=== PATIENT | female | born 1995 | race African-American/Black ===

== ENCOUNTER 2016-10-09 00:17 | Inpatient (IN) | payer SELFPAY ==
[~2016-10-09] VITALS: Ht 160 cm; Wt 112.9 kg
[2016-10-09 00:44] LABS: BILIRUBIN,URINE NEGATIVE (NEG); GLUCOSE,URINE NEGATIVE (NEG); NITRITE,URINE NEGATIVE (NEG); PH,URINE 6.5; PROTEIN,URINE NEGATIVE (NEG-TRACE)
[2016-10-09 01:06] LABS: BACTERIA,URINE FEW /HPF (0-FEW); SQUAMOUS EPITHELIAL CELL,UR MOD /LPF
[2016-10-09] MEDS: IV RINGERS,LACTATED 1000ML 1,000 ML IV SCH ×2 (01:35→17:19)
--- NOTE | 2016-10-09 14:04 | RAD ---
Indication hypertension. Estimated weight. A limited obstetrical ultrasound examination was performed as well as a biophysical profile score. Note is made of a previous ultrasound examination 13 days earlier. A single intrauterine is identified. A heart rate was not obtained. Biparietal diameter of 9.2 cm, head circumference of 33.3 cm, abdominal circumference of 35 cm and femoral length of 7.7 cm are compatible with a gestational age of approximately 38 weeks 4 days. By sonographic analysis the expected date of confinement is 10/19/2016 which is in general agreement with previous exam. Estimated weight on today's examination is 3600 g. A survey was not performed. Current presentation is cephalic. The placenta is predominantly anterior. A biophysical profile score was also performed. Normal breathing was seen. There was normal movement and tone. The amount of amniotic fluid appeared normal. The calculated TOMÁS is 12. IMPRESSION: Single fetus of approximately 38 weeks 4 days gestation. Estimated weight 3600 g. Biophysical profile score 8 out of 8
[2016-10-09] MEDS ORDERED: DINOPROSTONE 10 MG SUPP.VAG VG ONE (17:00)
[2016-10-09 17:35] LABS: HEMATOCRIT 32.9 % (36.0-47.0); RED BLOOD COUNT 4.2 x10^6/uL (3.50-5.40); WHITE BLOOD COUNT 9.4 x10^3/uL (4.0-11.0)
[2016-10-09 18:31] VITALS: BP 145/77
[2016-10-09] MEDS ORDERED: AMPICILLIN 2 GM in IV NORMAL SALINE 100ML 100 ML IV ONE (18:45)
[2016-10-10] MEDS: ZOLPIDEM 5 MG TABLET. PO PRN ×2 (00:27→22:25)
[2016-10-10] MEDS: ACETAMINOPHEN 325 MG TABLET. PO PRN ×2 (00:27→22:25)
[2016-10-10] MEDS: IV RINGERS,LACTATED 1000ML 1,000 ML IV SCH ×3 (00:55→22:25)
[2016-10-10] MEDS ORDERED: OXYTOCIN 30 UNIT/500 ML PREMIX 500 ML IV PRN ×2 (06:15)
[2016-10-10] MEDS ORDERED: IBUPROFEN 800 MG TABLET. PO PRN (06:15)
[2016-10-10] MEDS ORDERED: MAG HYDROX/AL HYDROX/SIMETH 30 ML ORAL.SUSP PO PRN (06:15)
[2016-10-10] MEDS ORDERED: TERBUTALINE 1 MG/ML VIAL. SQ PRN (06:15)
[2016-10-10] MEDS ORDERED: 0.9 % SODIUM CHLORIDE 10 ML DISP.SYRIN. IV PRN (06:15)
[2016-10-10] MEDS ORDERED: CITRIC ACID/SODIUM CITRATE 30 ML SOLUTION. PO PRN (06:15)
[2016-10-10] MEDS ORDERED: BUTORPHANOL 2 MG VIAL. IV PRN (06:15)
[2016-10-10] MEDS ORDERED: LIDOCAINE 1% PF 30 ML VIAL. INJ PRN (06:15)
[2016-10-10] MEDS ORDERED: AMPICILLIN 2 GM in IV NORMAL SALINE 100ML 100 ML IV ONE (08:00)
[2016-10-10] MEDS ORDERED: ONDANSETRON PF 4 MG/2 ML VIAL. IV PRN (08:30)
[2016-10-10] MEDS ORDERED: DINOPROSTONE 10 MG SUPP.VAG VG ONE ×2 (10:00→14:45)
[2016-10-10] MEDS ORDERED: AMPICILLIN 1 GM in IV NORMAL SALINE 50ML 50 ML IV SCH (12:00)
[2016-10-10 13:35] LABS: HEMATOCRIT 34.4 % (36.0-47.0); HEMOGLOBIN 11.2 g/dL (12.0-15.5); RED BLOOD COUNT 4.31 x10^6/uL (3.50-5.40); WHITE BLOOD COUNT 11.5 x10^3/uL (4.0-11.0)
[2016-10-10 14:24] LABS: ALBUMIN 2.5 g/dL (3.4-5.0); ALBUMIN/GLOBULIN RATIO 0.6 (1.0-1.7); CALCIUM 8.9 mg/dL (8.5-10.1); CREATININE 0.7 mg/dL (0.6-1.0); GFR 126.6; POTASSIUM 4.1 mmol/L (3.5-5.1); TOTAL BILIRUBIN 0.4 mg/dL (0.2-1.0); TOTAL PROTEIN 6.7 g/dL (6.4-8.2)
[2016-10-11] MEDS: BUTORPHANOL 2 MG VIAL. IV PRN ×2 (05:23→08:03)
[2016-10-11] MEDS: IV RINGERS,LACTATED 1000ML 1,000 ML IV SCH (08:42)
[2016-10-11] MEDS ORDERED: AMPICILLIN 1 GM in IV NORMAL SALINE 50ML 50 ML IV SCH (09:30)
[2016-10-11] MEDS ORDERED: L&D EPIDURAL CASSETTE 100 ML EP ONE (09:36)
[2016-10-11] MEDS ORDERED: LIDOCAINE 2% PF Vial for OR 5 ML VIAL. ONE (09:37)
[2016-10-11] MEDS ORDERED: FENTANYL PF 100 MCG/2 ML VIAL. ONE ×2 (09:37→17:49)
--- NOTE | 2016-10-11 17:35 | PDOC ---
VAGINAL DELIVERY DATE DATE: 10/11/16 TIME: 17:33 : 1 EDC: Oct 18, 2016 VAGINAL DELIVERY: VTX VACCUM ASSISTED: No PLACENTA: Spontaneous SEX: Female WEIGHT Weight [ ] Nuchal Cord: No Amniotic Fluid: Thick Meconium PAIN: Epidural EPISIOTOMY: Yes EXTENSION: No EBL 400cc COMPLICATIONS none CONDITION stable Signs of Intrauterine Infectio: None Shoulder Dystocia: No DIAGNOSIS TIUP del Problems: ANIKET PAUL MD Oct 11, 2016 17:35
[2016-10-11] MEDS ORDERED: OXYTOCIN 30 UNIT/500 ML PREMIX 500 ML IV PRN ×2 (17:45)
[2016-10-11] MEDS ORDERED: SIMETHICONE 80 MG TAB.CHEW PO PRN ×2 (17:45)
[2016-10-11] MEDS ORDERED: BENZOCAINE 20% TOPICAL AEROSOL SPRAY 57GM CAN. TP PRN ×2 (17:45)
[2016-10-11] MEDS ORDERED: ACETAMINOPHEN 325 MG TABLET. PO PRN ×2 (17:45)
[2016-10-11] MEDS ORDERED: MAG HYDROX/AL HYDROX/SIMETH 30 ML ORAL.SUSP PO PRN ×2 (17:45)
[2016-10-11] MEDS ORDERED: DIPHENHYDRAMINE HCL 25 MG CAPSULE PO PRN ×2 (17:45)
[2016-10-11] MEDS ORDERED: HYDROCORTISONE 1% TOPICAL OINTMENT 30GM TUBE. TP PRN ×2 (17:45)
[2016-10-11] MEDS ORDERED: HYDROCODONE/APAP 5/325MG TABLET. PO PRN (17:45)
[2016-10-11] MEDS ORDERED: PHENYLEPH/MINERAL OIL/PETROLAT RECTAL OINTMENT 28GM TUBE. RC PRN ×2 (17:45)
[2016-10-11] MEDS ORDERED: 0.9 % SODIUM CHLORIDE 10 ML DISP.SYRIN. IV PRN ×3 (17:45→18:15)
[2016-10-11] MEDS ORDERED: ZOLPIDEM 5 MG TABLET. PO PRN ×2 (17:45)
[2016-10-11] MEDS ORDERED: MAGNESIUM HYDROXIDE 2,400 MG/30 ML ORAL.SUSP. PO PRN ×2 (17:45)
[2016-10-11] MEDS ORDERED: MAGNESIUM SULFATE 4GM 100 ML IV ONE ×2 (18:13→18:30)
[2016-10-11] MEDS: MAGNESIUM SULFATE 20GM 500 ML IV SCH (18:30)
[2016-10-11 19:18] LABS: BASO # 0.1 x10^3/uL (0.0-0.2); BASO % 1 % (0-3); EOS % 0 % (0-3); HEMATOCRIT 28.9 % (36.0-47.0); HEMOGLOBIN 9.4 g/dL (12.0-15.5); LYMPH # 0.9 x10^3/uL (1.0-4.8); LYMPH % 4 % (24-48); MEAN CORPUSCULAR HEMOGLOBIN 26 pg (25-35); MEAN CORPUSCULAR HGB CONC 32 g/dL (31-37); MEAN CORPUSCULAR VOLUME 80 fL (79-100); MONO % 5 % (0-9); NEUT % 91 % (31-73); PLATELET COUNT 199 x10^3/uL (140-400); RED CELL DISTRIBUTION WIDTH 14.3 % (11.5-14.5); WHITE BLOOD COUNT 23.5 x10^3/uL (4.0-11.0)
[2016-10-11 19:41] LABS: ALBUMIN 2.1 g/dL (3.4-5.0); ALBUMIN/GLOBULIN RATIO 0.6 (1.0-1.7); CALCIUM 8.3 mg/dL (8.5-10.1); CREATININE 0.9 mg/dL (0.6-1.0); GFR 94.7; POTASSIUM 4.1 mmol/L (3.5-5.1); TOTAL BILIRUBIN 0.6 mg/dL (0.2-1.0); TOTAL PROTEIN 5.8 g/dL (6.4-8.2)
[2016-10-11 19:59] LABS: PLT ESTIMATE ADEQUATE (ADEQUATE); TOXIC GRANULATION SLIGHT; TOXIC VACUOLATION SLIGHT
[2016-10-11 21:00] VITALS: BP 144/72
[2016-10-11] MEDS ORDERED: IBUPROFEN 800 MG TABLET. PO SCH ×2 (22:00)
[2016-10-11 23:00] VITALS: BP 158/90
[2016-10-12] VITALS (11 sets, daily range): BP systolic 126–178; BP diastolic 63–99
[2016-10-12] MEDS: MAGNESIUM SULFATE 20GM 500 ML IV SCH ×2 (03:02→14:08)
[2016-10-12] MEDS ORDERED: FERROUS SULFATE 325 MG TABLET PO SCH ×2 (08:00)
[2016-10-12] MEDS ORDERED: PRENATAL MULTIVITAMIN TABLET. PO SCH (09:00)
[2016-10-12] MEDS: IV RINGERS,LACTATED 1000ML 1,000 ML IV SCH (10:44)
--- NOTE | 2016-10-12 15:35 | PDOC ---
Provider Note Provider Note Doing well VSS Uterus NTTP CBC - BMP 10/11/16 19:08 10/12/16 07:40 Laboratory Tests Test 10/11/16 19:08 10/12/16 07:40 White Blood Count 23.5x10^3/uL Red Blood Count 3.60x10^6/uL Hemoglobin 9.4g/dL Hematocrit 28.9% 26.5% Mean Corpuscular Volume 80fL Mean Corpuscular Hemoglobin 26pg Mean Corpuscular Hemoglobin Concent 32g/dL Red Cell Distribution Width 14.3% Platelet Count 199x10^3/uL Neutrophils (%) (Auto) 91% Lymphocytes (%) (Auto) 4% Monocytes (%) (Auto) 5% Eosinophils (%) (Auto) 0% Basophils (%) (Auto) 1% Neutrophils # (Auto) 21.3x10^3uL Lymphocytes # (Auto) 0.9x10^3/uL Monocytes # (Auto) 1.2x10^3/uL Eosinophils # (Auto) 0.0x10^3/uL Basophils # (Auto) 0.1x10^3/uL Segmented Neutrophils % 90% Band Neutrophils % 1% Lymphocytes % 5% Monocytes % 4% Toxic Granulation Slight Toxic Vacuolation Slight Platelet Estimate Adequate Sodium Level 140mmol/L Potassium Level 4.1mmol/L Chloride Level 106mmol/L Carbon Dioxide Level 21mmol/L Anion Gap 13 Blood Urea Nitrogen 9mg/dL Creatinine 0.9mg/dL Estimated GFR (Cockcroft-Gault) 94.7 BUN/Creatinine Ratio 10 Glucose Level 90mg/dL Uric Acid 8.0mg/dL Calcium Level 8.3mg/dL Total Bilirubin 0.6mg/dL Aspartate Amino Transf (AST/SGOT) 17U/L Alanine Aminotransferase (ALT/SGPT) 13U/L Alkaline Phosphatase 100U/L Total Protein 5.8g/dL Albumin 2.1g/dL Albumin/Globulin Ratio 0.6 Current Medications Medications (Trade) Dose Ordered Sig/Yanet Route PRN Reason Start Time Stop Time Status Last Admin Dose Admin Lactated Ringer's (Iv Lactated Ringers) 1,000 ml @ 125 mls/hr Q8H IV 10/09/16 00:23 10/11/16 08:42 Dinoprostone (Cervidil) 10 mg 1X ONCE VG 10/09/16 17:00 10/09/16 17:01 DC 10/09/16 17:18 Zolpidem Tartrate 10 mg 10 mg PRN QHS PRN PO INSOMNIA 10/09/16 16:15 10/10/16 22:25 Ampicillin Sodium/ Sodium Chloride (Omnipen/Iv Sodium Chloride 0.9% 100ml) 100 ml @ 200 mls/hr 1X ONCE IV 10/09/16 18:45 10/09/16 19:14 DC 10/09/16 19:08 Acetaminophen (Tylenol) 650 mg PRN Q6HRS PRN PO MILD PAIN / TEMP 10/10/16 00:23 10/10/16 22:25 Sodium Chloride 3 ml 3 ml QSHIFT PRN IV AFTER MEDS AND BLOOD DRAWS 10/10/16 06:15 Lactated Ringer's (Iv Lactated Ringers) 1,000 ml @ 125 mls/hr Q8H IV 10/10/16 06:11 10/12/16 10:44 Butorphanol Tartrate (Stadol) 1 mg PRN Q1HR PRN IV mild to moderate labor pain 10/10/16 06:15 Butorphanol Tartrate (Stadol) 2 mg PRN Q1HR PRN IV Severe labor pain 10/10/16 06:15 10/11/16 08:03 Al Hydroxide/Mg Hydroxide (Mylanta Plus Xs) 30 ml PRN Q4HRS PRN PO HEARTBURN / GAS 10/10/16 06:15 Citric Acid/ Sodium Citrate (Bicitra) 30 ml 1X PRN PRN PO DYSPEPSIA 10/10/16 06:15 10/11/16 06:14 DC Terbutaline Sulfate (Brethine) 0.25 mg 1X PRN PRN SQ SEE COMMENTS 10/10/16 06:15 10/11/16 06:14 DC Lidocaine HCl 30 ml 30 ml 1X PRN PRN INJ SEE COMMENTS 10/10/16 06:15 10/12/16 06:14 DC 10/11/16 17:12 Ampicillin Sodium 2 gm/Sodium Chloride 100 ml @ 200 mls/hr 1X ONCE IV 10/10/16 08:00 10/10/16 08:29 DC 10/11/16 05:23 Ampicillin Sodium 1 gm/Sodium Chloride 50 ml @ 100 mls/hr Q4H IV 10/10/16 12:00 10/11/16 06:45 DC Oxytocin/Sodium Chloride 500 ml @ 0 mls/hr CONT PRN IV SEE I/O RECORD 10/10/16 06:15 10/11/16 06:04 Oxytocin/Sodium Chloride (Oxytocin Premix Infusion) 500 ml @ 0 mls/hr CONT PRN PRN IV Post delivery bleeding 10/10/16 06:15 Ibuprofen (Motrin) 800 mg PRN Q6HRS PRN PO PAIN 10/10/16 06:15 Ondansetron HCl (Zofran) 4 mg PRN Q6HRS PRN IV NAUSEA/VOMITING 10/10/16 08:30 10/10/16 08:35 Dinoprostone (Cervidil) 10 mg 1X ONCE VG 10/10/16 10:00 10/10/16 10:01 DC 10/10/16 09:52 Dinoprostone 10 mg 10 mg 1X ONCE VG 10/10/16 14:45 10/10/16 14:54 DC 10/10/16 15:07 Ampicillin Sodium 1 gm/Sodium Chloride 50 ml @ 100 mls/hr Q4H IV 10/11/16 09:30 10/11/16 22:20 DC 10/11/16 09:21 Ropivacaine/ Fentanyl/NS (Rhvieixn-Hqnyf-UK 3 Mcg-0.1%) 100 ml @ As Directed STK-MED ONCE EP 10/11/16 09:36 10/11/16 09:37 DC 10/11/16 09:40 Fentanyl Citrate (Fentanyl 2ml Vial) 100 mcg STK-MED ONCE .ROUTE 10/11/16 09:37 10/11/16 09:38 DC 10/11/16 10:06 Lidocaine HCl (Lidocaine Pf 2% Vial) 5 ml STK-MED ONCE .ROUTE 10/11/16 09:37 10/11/16 09:38 DC 10/11/16 10:06 Sodium Chloride 10 ml 10 ml QSHIFT PRN IV AFTER MEDS AND BLOOD DRAWS 10/11/16 17:45 Oxytocin/Sodium Chloride (Oxytocin Premix Infusion) 500 ml @ 62.5 mls/hr CONT PRN IV SEE I/O RECORD 10/11/16 17:45 10/12/16 01:44 DC Acetaminophen (Tylenol) 650 mg PRN Q6HRS PRN PO MILD PAIN / TEMP 10/11/16 17:45 Ibuprofen (Motrin) 800 mg Q8HRS PO 10/11/16 22:00 Magnesium Hydroxide (Milk Of Magnesia) 2,400 mg PRN DAILY PRN PO CONSTIPATION 10/11/16 17:45 Al Hydroxide/Mg Hydroxide (Mylanta Plus Xs) 30 ml PRN Q4HRS PRN PO HEARTBURN / GAS 10/11/16 17:45 Simethicone (Gas-X) 80 mg PRN AFTMEALHC PRN PO GAS / BLOATING 10/11/16 17:45 Diphenhydramine HCl (Benadryl) 25 mg PRN Q6HRS PRN PO ITCHING 10/11/16 17:45 Benzocaine (Americaine) 1 spray PRN QID PRN TP TOPICAL PAIN 10/11/16 17:45 Phenyleph/Shark Oil/Min Oil/Petrol (Preparation H) 1 aurea PRN QID PRN RC RECTAL PAIN 10/11/16 17:45 Hydrocortisone (Cortaid) 1 aurea PRN QID PRN TP RECTAL PAIN 10/11/16 17:45 Ferrous Sulfate (Feosol) 325 mg BIDWMEALS PO 10/12/16 08:00 Zolpidem Tartrate (Ambien) 5 mg PRN QHS PRN PO INSOMNIA, MAY REPEAT X1 10/11/16 17:45 Info (Do NOT chart on this placeholder) 1 ea 1X PRN PRN MC SEE COMMENTS 10/11/16 17:45 Acetaminophen/ Hydrocodone Bitart (Lortab 5/325) 1 tab PRN Q4HRS PRN PO PAIN 10/11/16 17:45 Sodium Chloride 10 ml 10 ml QSHIFT PRN IV AFTER MEDS AND BLOOD DRAWS 10/11/16 17:45 UNV Oxytocin/Sodium Chloride (Oxytocin Premix Infusion) 500 ml @ 62.5 mls/hr CONT PRN IV SEE I/O RECORD 10/11/16 17:45 10/12/16 01:44 UNV Acetaminophen (Tylenol) 650 mg PRN Q6HRS PRN PO MILD PAIN / TEMP 10/11/16 17:45 UNV Ibuprofen (Motrin) 800 mg Q8HRS PO 10/11/16 22:00 UNV Magnesium Hydroxide (Milk Of Magnesia) 2,400 mg PRN DAILY PRN PO CONSTIPATION 10/11/16 17:45 UNV Al Hydroxide/Mg Hydroxide (Mylanta Plus Xs) 30 ml PRN Q4HRS PRN PO HEARTBURN / GAS 10/11/16 17:45 UNV Simethicone (Gas-X) 80 mg PRN AFTMEALHC PRN PO GAS / BLOATING 10/11/16 17:45 UNV Diphenhydramine HCl (Benadryl) 25 mg PRN Q6HRS PRN PO ITCHING 10/11/16 17:45 UNV Benzocaine (Americaine) 1 spray PRN QID PRN TP TOPICAL PAIN 10/11/16 17:45 UNV Phenyleph/Shark Oil/Min Oil/Petrol (Preparation H) 1 aurea PRN QID PRN RC RECTAL PAIN 10/11/16 17:45 UNV Hydrocortisone (Cortaid) 1 aurea PRN QID PRN TP RECTAL PAIN 10/11/16 17:45 UNV Ferrous Sulfate (Feosol) 325 mg BIDWMEALS PO 10/12/16 08:00 UNV Zolpidem Tartrate (Ambien) 5 mg PRN QHS PRN PO INSOMNIA, MAY REPEAT X1 10/11/16 17:45 UNV Info (Do NOT chart on this placeholder) 1 ea 1X PRN PRN MC SEE COMMENTS 10/11/16 17:45 UNV Fentanyl Citrate (Fentanyl 2ml Vial) 100 mcg STK-MED ONCE .ROUTE 10/11/16 17:49 10/11/16 17:50 DC 10/11/16 17:49 Sodium Chloride 3 ml 3 ml QSHIFT PRN IV AFTER MEDS AND BLOOD DRAWS 10/11/16 18:15 Magnesium Sulfate/ Dextrose 100 ml @ 300 mls/hr 1X ONCE IV 10/11/16 18:30 10/11/16 18:49 DC 10/11/16 18:30 Magnesium Sulfate (Magnesium Sulfate PREMIX 20GM) 500 ml @ 50 mls/hr Q10H IV 10/11/16 18:30 10/12/16 14:08 Prenat Multivit/ Seismograph Supervisor/Iron/Folic Ac 1 tab 1 tab DAILY PO 10/12/16 09:00 Magnesium Sulfate/ Dextrose (Magnesium Sulfate PREMIX 4GM) 100 ml @ As Directed STK-MED ONCE IV 10/11/16 18:13 10/11/16 18:14 DC Stable Continue Mg 24hours Check cbc and cmp in AM ANIKET PAUL MD Oct 12, 2016 15:35
[2016-10-13 00:56] VITALS: BP 138/69
[2016-10-13 05:55] VITALS: BP 152/75
[2016-10-13 06:09] VITALS: BP 148/84
[2016-10-13 06:44] LABS: BASO # 0.1 x10^3/uL (0.0-0.2); BASO % 1 % (0-3); EOS % 0 % (0-3); HEMOGLOBIN 7.5 g/dL (12.0-15.5); LYMPH # 2.1 x10^3/uL (1.0-4.8); LYMPH % 20 % (24-48); MEAN CORPUSCULAR HEMOGLOBIN 27 pg (25-35); MEAN CORPUSCULAR HGB CONC 33 g/dL (31-37); MEAN CORPUSCULAR VOLUME 81 fL (79-100); MONO % 6 % (0-9); NEUT % 73 % (31-73); PLATELET COUNT 172 x10^3/uL (140-400); RED BLOOD COUNT 2.85 x10^6/uL (3.50-5.40); RED CELL DISTRIBUTION WIDTH 14.7 % (11.5-14.5); WHITE BLOOD COUNT 10.5 x10^3/uL (4.0-11.0)
[2016-10-13 08:00] VITALS: BP 132/80
[2016-10-13] MEDS: SENNOSIDES/DOCUSATE 8.6/50MG TABLET. PO PRN ×2 (08:31→08:35)
--- NOTE | 2016-10-13 13:18 | PDOC1 ---
OB - History Hx of Present Care: Limited Care Ultrasounds: No ultrasounds Obstetrical Complications: Gestational Hypertension Past Family/Social History * Past Medical, Surgical, Family and Obstetric Histories reviewed from chart. Rubella: Unknown GBS Status: Positive HBsAG: Negative OB - Chief Complaint & HPI Date of Admission: Date of Admission: Oct 09, 2016 at 00:26 Chief Complaint/History : 1 Para: 0 EDC: Oct 18, 2016 Reason for admission: induction of labor Indication for induction: medical complication Admission Nurse Assessment Rev: Yes Problems: OB - Admission Exam Physical Exam Vitals: VS - Last 72 Hours, by Label Date Time Temp Pulse Resp B/P Pulse Ox O2 Delivery O2 Flow Rate FiO2 10/13/16 08:00 97.7 77 18 132/80 98 97.7 10/13/16 06:09 148/84 10/13/16 05:55 98.0 80 18 152/75 97 Room Air 98.0 10/13/16 00:56 98.6 94 20 138/69 98 98.6 10/12/16 20:20 98.1 94 20 128/74 98 Room Air 98.1 10/12/16 18:17 103 16 154/74 10/12/16 17:42 101 16 178/99 10/12/16 15:21 93 16 139/79 10/12/16 13:26 97.9 103 17 134/73 97.9 10/12/16 11:15 96 126/69 10/12/16 09:21 97.6 105 17 130/63 97.6 10/12/16 07:50 98.3 109 17 139/78 98.3 10/12/16 05:08 98.1 99 20 152/89 98.1 10/12/16 03:08 98.6 101 18 165/93 97 98.6 10/12/16 01:05 98.1 91 18 163/92 98 98.1 10/11/16 23:00 98.4 104 20 158/90 98 98.4 10/11/16 21:00 97.8 102 20 144/72 96 97.8 10/11/16 10:06 20 10/11/16 09:40 20 10/11/16 08:03 20 10/11/16 05:23 18 Room Air HEENT: Normal, Nasal Mucosa Normal, Oropharynx Normal, Moist Membranes, Fontanelles Normal Heart: Regular Rate Lungs: Clear, Equal Abdomen: Gravid Extremities: Normal Pulses, No tenderness or swelling Reflexes: Normal Cervical Dilatation: None Effacement: 0% Station: Ballotable Membranes: Intact Amniotic Fluid: Thick Meconium Accelerations: Accelerations Present Short Term Variability: Present Assessment/Plan Assessment/Plan TIUP GHTN Induction [facility] ANIKET PAUL MD Oct 13, 2016 13:18
[2016-10-13 13:20] LABS: ALBUMIN 2.4 g/dL (3.4-5.0); ALBUMIN/GLOBULIN RATIO 0.6 (1.0-1.7); CALCIUM 8.5 mg/dL (8.5-10.1); CREATININE 0.8 mg/dL (0.6-1.0); GFR 108.5; TOTAL BILIRUBIN 0.3 mg/dL (0.2-1.0); TOTAL PROTEIN 6.4 g/dL (6.4-8.2)
--- NOTE | 2016-10-13 13:20 | PDOC ---
Provider Note Provider Note 10/09/16 Late entry Stable on cervidil will continue FU in ANIKET MCCOLLUM MD Oct 13, 2016 13:20
--- NOTE | 2016-10-13 13:21 | PDOC ---
Provider Note Provider Note 10/07/16 Late entry Continue induction VSS FHT reassuring ACSVD ANIKET PAUL MD Oct 13, 2016 13:21
[2016-10-13] MEDS ORDERED: HYDR-971 PO (13:24)
[2016-10-13] MEDS ORDERED: NAPR500T3 PO (13:24)
[2016-10-13 14:10] VITALS: BP 150/88
[2016-10-13 20:00] VITALS: BP 158/90
== END 2016-10-13 20:05 | disposition home or self-care (01) | DRG 775 ==
LOC: 3 SO LND 00:17 → OBSVTOIN 00:26 → 3 NORTH 10-11 21:00
PROVIDERS: ADMIT Specialist; ATTEND Specialist
PROC: 10E0XZZ Delivery of Products of Conception, External Approach (ICD-10-PCS; principal; 2016-10-11)
PROC: 3E0S3CZ (ICD-10-PCS; 2016-10-11)
PROC: 00HU33Z Insertion of Infusion Device into Spinal Canal, Percutaneous Approach (ICD-10-PCS; 2016-10-11)
PROC: 0W8NXZZ Division of Female Perineum, External Approach (ICD-10-PCS; 2016-10-11)
DX: O77.0 Labor and delivery complicated by meconium in amniotic fluid (principal); O13.4 Gestational [pregnancy-induced] hypertension without significant proteinuria, complicating childbirth; Z3A.38 38 weeks gestation of pregnancy; Z37.0 Single live birth; Z91.013 Allergy to seafood
CPT/HCPCS: 36415; 76815; 76819; 80053; 81001; 84550; 85007; 85014; 85027; 86593; 86850; 86900; 86901; 87086; G0379; J0290; J2405; J2590; J3010; J3475; J7120

== ENCOUNTER 2016-10-22 14:15 | Inpatient (IN) | payer OTHER ==
[~2016-10-22] VITALS: Ht 160 cm; Wt 104.4 kg
[~2016-10-22 14:15] MED LIST: HYDR-971 PO; NAPR500T3 PO
--- NOTE | 2016-10-22 14:21 | PHYS DOC ---
Past Medical History Past Medical History: No Pertinent History Past Surgical History: No Surgical History Alcohol Use: None Drug Use: None Adult General Chief Complaint Chief Complaint: OTHER COMPLAINTS HPI HPI Patient is a 21 year old female who presents status post seizure. Patient brought in by her boyfriend, who reports patient was exhibiting seizure-like activity. As arriving at the hospital, she had a seizure in the parking lot. Brought into the emergency department, she is no longer seizing was found to have a temp of 103.2. Patient confused at this time, not been able to contribute much to history. Of note, patient delivered a baby via uncomplicated vaginal delivery on 10/13/16. No seizure history. Review of Systems Review of Systems ROS limited by post-ictal state Neuro: Seizure Current Medications Current Medications Current Medications Medications (Trade) Dose Ordered Sig/Yanet Start Time Stop Time Status Last Admin Dose Admin Acetaminophen 1000 mg 1,000 mg 1X ONCE 10/22/16 14:45 10/22/16 14:46 DC 10/22/16 14:52 1,000 MG Lorazepam (Ativan) 1 mg 1X ONCE 10/22/16 14:30 10/22/16 14:34 DC 10/22/16 14:53 1 MG Magnesium Sulfate/ Dextrose (Magnesium Sulfate PREMIX 2GM) 50 ml @ 25 mls/hr 1X ONCE 10/22/16 14:45 10/22/16 16:44 DC 10/22/16 14:56 25 MLS/HR Piperacillin Sod/ Tazobactam Sod (Zosyn Per Pharmacy) 1 each PRN DAILY PRN 10/22/16 14:30 Piperacillin Sod/ Tazobactam Sod 4.5 gm/Sodium Chloride 100 ml @ 200 mls/hr ONCE ONCE 10/22/16 14:45 10/22/16 15:14 DC 10/22/16 14:49 200 MLS/HR Sodium Chloride (Iv Sodium Chloride 0.9% 1000ml Bag) 1,000 ml @ 750 mls/hr Q1H20M 10/22/16 14:28 10/22/16 18:27 DC 10/22/16 20:50 750 MLS/HR Vancomycin HCl (Vanco Per Pharmacy) 1 each 1X ONCE 10/22/16 14:30 10/22/16 17:22 DC 10/22/16 14:30 1 EACH Vancomycin HCl 2 gm/Sodium Chloride 500 ml @ 250 mls/hr 1X ONCE 10/22/16 14:45 10/22/16 16:44 DC 10/22/16 15:25 250 MLS/HR Allergies Allergies Allergies Coded Allergies Type Severity Reaction Last Updated Verified shellfish derived Allergy Intermediate 10/09/16 Yes Physical Exam Physical Exam Constitutional: Well developed, well nourished, no acute distress, non-toxic appearance HENT: Normocephalic, atraumatic, bilateral external ears normal Eyes: PERRL, EOMI, conjunctiva normal, no discharge Neck: Normal range of motion, no stridor Cardiovascular: Tachycardic, regular rhythm, no murmur Lungs & Thorax: Bilateral breath sounds clear to auscultation Abdomen: Bowel sounds normal, soft, non-distended, no TTP : No significant vaginal discharge noted Skin: Hot to touch, dry, no erythema, no rash Extremities: No obvious deformity, no edema Neurologic: Alert, confused but with improving mental status, follows commands Current Patient Data Vital Signs Vital Signs Date Time Temp Pulse Resp B/P Pulse Ox O2 Delivery O2 Flow Rate FiO2 10/22/16 15:52 104 28 150/73 100 Nasal Cannula 2 10/22/16 14:15 103.2 103.2 Lab Values Laboratory Tests Test 10/22/16 14:15 10/22/16 14:20 10/22/16 15:10 White Blood Count 10.7x10^3/uL (4.0-11.0) Red Blood Count 3.45x10^6/uL (3.50-5.40) L Hemoglobin 8.8g/dL (12.0-15.5) L Hematocrit 27.6% (36.0-47.0) L Mean Corpuscular Volume 80fL (79-100) Mean Corpuscular Hemoglobin 26pg (25-35) Mean Corpuscular Hemoglobin Concent 32g/dL (31-37) Red Cell Distribution Width 14.7% (11.5-14.5) H Platelet Count 415x10^3/uL (140-400) #H Neutrophils (%) (Auto) 90% (31-73) H Lymphocytes (%) (Auto) 9% (24-48) L Monocytes (%) (Auto) 1% (0-9) Eosinophils (%) (Auto) 0% (0-3) Basophils (%) (Auto) 1% (0-3) Neutrophils # (Auto) 9.6x10^3uL (1.8-7.7) H Lymphocytes # (Auto) 0.9x10^3/uL (1.0-4.8) L Monocytes # (Auto) 0.1x10^3/uL (0.0-1.1) Eosinophils # (Auto) 0.0x10^3/uL (0.0-0.7) Basophils # (Auto) 0.1x10^3/uL (0.0-0.2) Sodium Level 134mmol/L (136-145) L Potassium Level 4.0mmol/L (3.5-5.1) Chloride Level 101mmol/L (98-107) Carbon Dioxide Level 23mmol/L (21-32) Anion Gap 10 (6-14) Blood Urea Nitrogen 10mg/dL (7-20) Creatinine 0.9mg/dL (0.6-1.0) Estimated GFR (Cockcroft-Gault) 94.7 BUN/Creatinine Ratio 11 (6-20) Glucose Level 84mg/dL (70-99) Lactic Acid Level 1.6mmol/L (0.4-2.0) Calcium Level 8.5mg/dL (8.5-10.1) Magnesium Level 1.6mg/dL (1.8-2.4) L Total Bilirubin 0.4mg/dL (0.2-1.0) Aspartate Amino Transferase (AST) 19U/L (15-37) Alanine Aminotransferase (ALT) 18U/L (14-59) Alkaline Phosphatase 113U/L (46-116) Total Protein 8.0g/dL (6.4-8.2) Albumin 2.9g/dL (3.4-5.0) L Albumin/Globulin Ratio 0.6 (1.0-1.7) L Urine Collection Type U cath Urine Color Yellow Urine Clarity Clear Urine pH 6.0 Urine Specific [place] 1.010 Urine Protein Negativemg/dL (NEG-TRACE) Urine Glucose (UA) Negativemg/dL (NEG) Urine Ketones (Stick) Negativemg/dL (NEG) Urine Blood Large (NEG) Urine Nitrite Negative (NEG) Urine Bilirubin Negative (NEG) Urine Urobilinogen Dipstick 1.0mg/dL (0.2 mg/dL) Urine Leukocyte Esterase Large (NEG) Urine RBC 3-5/HPF (0-2) Urine WBC 11-20/HPF (0-4) Urine Squamous Epithelial Cells Occ/LPF Urine Transitional Epithelial Cells Occ/LPF Urine Amorphous Sediment Present/HPF Urine Bacteria Moderate/HPF (0-FEW) Urine Mucus Slight/LPF Influenza Type A Antigen Negative (NEGATIVE) Influenza Type B Antigen Negative (NEGATIVE) Laboratory Tests 10/22/16 14:15 Laboratory Tests 10/22/16 14:15 EKG EKG EKG (my read): sinus tachycardia, rate 141, RAD, no acute ischemic changes Radiology/Procedures Radiology/Procedures CXR: Impression: 1. No acute cardiopulmonary process. Course & Med Decision Making Course & Med Decision Making Pertinent Labs and Imaging studies reviewed. (See chart for details) Patient is 21 year old female who presents with fever and s/p seizure. Delivered baby via vaginal delivery just over a week ago. Unclear if seizure is related to ; would expect that she would not have seizure from eclampsia this far removed from delivery. Based on fever, tachycardia, tachypnea patient meets SIRS criteria. As such will give sepsis fluid bolus and cover with broad spectrum abx given recent hospital admission. EKG, CXR, labs ordered. Labs notable for anemia (expected), slight hyponatemia, slight hypomagnesemia. Discussed with Dr. Messer and then later Dr. Torrez. magnesium bolus ordered per recs. UA appears indicative of UTI, possible source for fever. Discussed results with patient, who wants to leave the hospital. Both myself and nursing staff had long conversation with patient about the dangers to both herself and her baby if she were to leave the hospital. Patient has reluctantly agreed to stay. Discussed with Dr. Nazario, will admit under his care for further evaluation and treatment. Dragon Disclaimer Dragon Disclaimer This electronic medical record was generated, in whole or in part, using a voice recognition dictation system. Departure Departure Impression: Primary Impression: Sepsis Additional Impression: Seizure Disposition: 09 ADMITTED INPATIENT Admitting Physician: Levi Nazario Condition: GUARDED Referrals: NO PCP (PCP) Problem Qualifiers OLGA LIDIA FINN MD Oct 22, 2016 14:21
[2016-10-22] MEDS: IV NORMAL SALINE 1000ML BAG 1,000 ML IV SCH ×3 (14:25→20:50)
[2016-10-22] MEDS ORDERED: LORAZEPAM 2 MG/ML VIAL IV ONE (14:30)
[2016-10-22] MEDS ORDERED: PIP/TAZO PER PHARMACY MC PRN (14:30)
[2016-10-22] MEDS ORDERED: VANCOMYCIN PER PHARMACY MC ONE (14:30)
[2016-10-22] MEDS ORDERED: MAGNESIUM SULFATE 4GM 100 ML IV ONE (14:45)
[2016-10-22] MEDS ORDERED: MAGNESIUM SULFATE 2GM 50 ML IV ONE (14:45)
[2016-10-22] MEDS ORDERED: ACETAMINOPHEN 500 MG TABLET PO ONE (14:45)
[2016-10-22] MEDS ORDERED: VANCOMYCIN 2 GM in IV NORMAL SALINE 500ML BAG 500 ML IV ONE (14:45)
[2016-10-22] MEDS ORDERED: PIPERACILLIN/TAZOBACTAM 4.5 GM in IV NORMAL SALINE 100ML 100 ML IV ONE (14:45)
[2016-10-22 14:48] LABS: BASO # 0.1 x10^3/uL (0.0-0.2); BASO % 1 % (0-3); EOS % 0 % (0-3); HEMATOCRIT 27.6 % (36.0-47.0); HEMOGLOBIN 8.8 g/dL (12.0-15.5); LYMPH # 0.9 x10^3/uL (1.0-4.8); LYMPH % 9 % (24-48); MEAN CORPUSCULAR HEMOGLOBIN 26 pg (25-35); MEAN CORPUSCULAR HGB CONC 32 g/dL (31-37); MEAN CORPUSCULAR VOLUME 80 fL (79-100); MONO % 1 % (0-9); NEUT % 90 % (31-73); PLATELET COUNT 415 x10^3/uL (140-400); RED BLOOD COUNT 3.45 x10^6/uL (3.50-5.40); RED CELL DISTRIBUTION WIDTH 14.7 % (11.5-14.5); WHITE BLOOD COUNT 10.7 x10^3/uL (4.0-11.0)
[2016-10-22 14:51] LABS: BILIRUBIN,URINE NEGATIVE (NEG); GLUCOSE,URINE NEGATIVE (NEG); NITRITE,URINE NEGATIVE (NEG); PROTEIN,URINE NEGATIVE (NEG-TRACE)
[2016-10-22 15:00] LABS: CALCIUM 8.5 mg/dL (8.5-10.1); CREATININE 0.9 mg/dL (0.6-1.0); GFR 94.7
[2016-10-22 15:06] LABS: ALBUMIN 2.9 g/dL (3.4-5.0); ALBUMIN/GLOBULIN RATIO 0.6 (1.0-1.7); MAGNESIUM 1.6 mg/dL (1.8-2.4); TOTAL BILIRUBIN 0.4 mg/dL (0.2-1.0)
[2016-10-22 15:09] LABS: BACTERIA,URINE MODERATE /HPF (0-FEW); SQUAMOUS EPITHELIAL CELL,UR OCC /LPF
--- NOTE | 2016-10-22 15:19 | RAD ---
Exam: AP portable chest. History: Fever, evaluate for infiltrate. Comparison: None. Findings: The heart and mediastinal structures are within normal limits for size. Lungs are without infiltrate. No pneumothorax or pleural effusion is appreciated. Impression: 1. No acute cardiopulmonary process.
[2016-10-22 15:49] LABS: OBC FLU VALID
[2016-10-22] MEDS ORDERED: ONDANSETRON PF 4 MG/2 ML VIAL. IV PRN ×2 (16:15→18:45)
[2016-10-22] MEDS ORDERED: ACETAMINOPHEN 325 MG TABLET. PO PRN ×2 (16:15→18:45)
[2016-10-22] MEDS ORDERED: MORPHINE SULFATE 2 MG/ML DISP.SYRIN. IV PRN (16:15)
--- NOTE | 2016-10-22 18:35 | PDOC1 ---
History and Physical Current Problem List Problem List Problems Medical Problems: (1) Seizure Status: Acute (2) Sepsis Status: Acute Current Medications Current Medications Current Medications Medications (Trade) Dose Ordered Sig/Yanet Start Time Stop Time Status Last Admin Dose Admin Acetaminophen (Tylenol) 325 mg PRN Q6HRS PRN 10/22/16 18:45 UNV Acetaminophen 1000 mg 1,000 mg 1X ONCE 10/22/16 14:45 10/22/16 14:46 DC 10/22/16 14:52 1,000 MG Acetaminophen 650 mg 650 mg PRN Q4HRS PRN 10/22/16 16:15 10/23/16 16:14 Acetaminophen/ Hydrocodone Bitart (Lortab 5/325) 1 tab PRN Q6HRS PRN 10/22/16 18:45 UNV Albuterol Sulfate (Ventolin Neb Soln) 2.5 mg PRN Q4HRS PRN 10/22/16 18:45 UNV Hydralazine HCl (Apresoline) 10 mg PRN Q4HRS PRN 10/22/16 18:45 UNV Lorazepam (Ativan) 1 mg 1X ONCE 10/22/16 14:30 10/22/16 14:34 DC 10/22/16 14:53 1 MG Magnesium Sulfate/ Dextrose (Magnesium Sulfate PREMIX 2GM) 50 ml @ 25 mls/hr 1X ONCE 10/22/16 14:45 10/22/16 16:44 DC 10/22/16 14:56 25 MLS/HR Morphine Sulfate 2 mg PRN Q2HR PRN 10/22/16 16:15 10/23/16 16:14 Ondansetron HCl (Zofran) 4 mg PRN Q8HRS PRN 10/22/16 18:45 UNV Piperacillin Sod/ Tazobactam Sod (Zosyn Per Pharmacy) 1 each PRN DAILY PRN 10/22/16 14:30 Piperacillin Sod/ Tazobactam Sod 4.5 gm/Sodium Chloride 100 ml @ 200 mls/hr Q6HRS 10/22/16 20:00 Sodium Chloride (Iv Sodium Chloride 0.9% 1000ml Bag) 1,000 ml @ 125 mls/hr DAILY 10/23/16 09:00 UNV Vancomycin HCl (Vanco Per Pharmacy) 1 each 1X ONCE 10/22/16 14:30 10/22/16 17:22 DC 10/22/16 14:30 1 EACH Vancomycin HCl 1 each 1 each 1X ONCE 10/23/16 14:30 10/23/16 14:31 Vancomycin HCl 2 gm/Sodium Chloride 500 ml @ 250 mls/hr 1X ONCE 10/22/16 14:45 10/22/16 16:44 DC 10/22/16 15:25 250 MLS/HR Vancomycin HCl/ Sodium Chloride (Iv Sodium Chloride 0.9% 250ml) 250 ml @ 167 mls/hr Q8H 10/22/16 23:00 Allergies Allergies Allergies Coded Allergies Type Severity Reaction Last Updated Verified shellfish derived Allergy Intermediate 10/09/16 Yes ROS Review of System CONSTITUTIONAL: No fever or chills EYES: No recent changes SKIN: No rash or itching CARDIOVASCULAR: No chest pain, syncope, palpitations, or edema RESPIRATORY: No SOB or cough GASTROINTESTINAL: No nausea, vomiting or abdominal pain NEUROLOGICAL: No headaches or weakness ENDOCRINE: No cold or heat intolerance GENITOURINARY: No urgency or frequency of urination MUSCULOSKELETAL: No back pain or joint pain LYMPHATICS: No enlarged lymph nodes PSYCHIATRIC: No anxiety or depression Physical Exam Physical Exam GEN.: No apparent distress. Alert and oriented. HEENT: Head is normocephalic, atraumatic NECK: Supple. LUNGS: Clear to auscultation. HEART: RRR, S1, S2 present. Peripheral pulses intact ABDOMEN: Soft, nontender. Positive bowel sounds. EXTREMITIES: Without any cyanosis. NEUROLOGIC: Normal speech, normal tone PSYCHIATRIC: Normal affect, normal mood. SKIN: No ulcerations Vitals Vitals Vital Signs Date Time Temp Pulse Resp B/P Pulse Ox O2 Delivery O2 Flow Rate FiO2 10/22/16 17:22 100 20 119/69 100 Room Air 10/22/16 16:02 2 10/22/16 14:15 103.2 103.2 Labs Labs Laboratory Tests Test 10/22/16 14:15 10/22/16 14:20 10/22/16 15:10 10/22/16 16:22 White Blood Count 10.7x10^3/uL (4.0-11.0) Red Blood Count 3.45x10^6/uL (3.50-5.40) Hemoglobin 8.8g/dL (12.0-15.5) Hematocrit 27.6% (36.0-47.0) Mean Corpuscular Volume 80fL (79-100) Mean Corpuscular Hemoglobin 26pg (25-35) Mean Corpuscular Hemoglobin Concent 32g/dL (31-37) Red Cell Distribution Width 14.7% (11.5-14.5) Platelet Count 415x10^3/uL (140-400) Neutrophils (%) (Auto) 90% (31-73) Lymphocytes (%) (Auto) 9% (24-48) Monocytes (%) (Auto) 1% (0-9) Eosinophils (%) (Auto) 0% (0-3) Basophils (%) (Auto) 1% (0-3) Neutrophils # (Auto) 9.6x10^3uL (1.8-7.7) Lymphocytes # (Auto) 0.9x10^3/uL (1.0-4.8) Monocytes # (Auto) 0.1x10^3/uL (0.0-1.1) Eosinophils # (Auto) 0.0x10^3/uL (0.0-0.7) Basophils # (Auto) 0.1x10^3/uL (0.0-0.2) Sodium Level 134mmol/L (136-145) Potassium Level 4.0mmol/L (3.5-5.1) Chloride Level 101mmol/L (98-107) Carbon Dioxide Level 23mmol/L (21-32) Anion Gap 10 (6-14) Blood Urea Nitrogen 10mg/dL (7-20) Creatinine 0.9mg/dL (0.6-1.0) Estimated GFR (Cockcroft-Gault) 94.7 BUN/Creatinine Ratio 11 (6-20) Glucose Level 84mg/dL (70-99) Lactic Acid Level 1.6mmol/L (0.4-2.0) 0.8mmol/L (0.4-2.0) Calcium Level 8.5mg/dL (8.5-10.1) Magnesium Level 1.6mg/dL (1.8-2.4) Total Bilirubin 0.4mg/dL (0.2-1.0) Aspartate Amino Transf (AST/SGOT) 19U/L (15-37) Alanine Aminotransferase (ALT/SGPT) 18U/L (14-59) Alkaline Phosphatase 113U/L (46-116) Total Protein 8.0g/dL (6.4-8.2) Albumin 2.9g/dL (3.4-5.0) Albumin/Globulin Ratio 0.6 (1.0-1.7) Urine Collection Type U cath Urine Color Yellow Urine Clarity Clear Urine pH 6.0 Urine Specific [place] 1.010 Urine Protein Negativemg/dL (NEG-TRACE) Urine Glucose (UA) Negativemg/dL (NEG) Urine Ketones (Stick) Negativemg/dL (NEG) Urine Blood Large (NEG) Urine Nitrite Negative (NEG) Urine Bilirubin Negative (NEG) Urine Urobilinogen Dipstick 1.0mg/dL (0.2 mg/dL) Urine Leukocyte Esterase Large (NEG) Urine RBC 3-5/HPF (0-2) Urine WBC 11-20/HPF (0-4) Urine Squamous Epithelial Cells Occ/LPF Urine Transitional Epithelial Cells Occ/LPF Urine Amorphous Sediment Present/HPF Urine Bacteria Moderate/HPF (0-FEW) Urine Mucus Slight/LPF Influenza Type A Antigen Negative (NEGATIVE) Influenza Type B Antigen Negative (NEGATIVE) Laboratory Tests Test 10/22/16 14:15 10/22/16 14:20 10/22/16 15:10 10/22/16 16:22 White Blood Count 10.7x10^3/uL (4.0-11.0) Red Blood Count 3.45x10^6/uL (3.50-5.40) Hemoglobin 8.8g/dL (12.0-15.5) Hematocrit 27.6% (36.0-47.0) Mean Corpuscular Volume 80fL (79-100) Mean Corpuscular Hemoglobin 26pg (25-35) Mean Corpuscular Hemoglobin Concent 32g/dL (31-37) Red Cell Distribution Width 14.7% (11.5-14.5) Platelet Count 415x10^3/uL (140-400) Neutrophils (%) (Auto) 90% (31-73) Lymphocytes (%) (Auto) 9% (24-48) Monocytes (%) (Auto) 1% (0-9) Eosinophils (%) (Auto) 0% (0-3) Basophils (%) (Auto) 1% (0-3) Neutrophils # (Auto) 9.6x10^3uL (1.8-7.7) Lymphocytes # (Auto) 0.9x10^3/uL (1.0-4.8) Monocytes # (Auto) 0.1x10^3/uL (0.0-1.1) Eosinophils # (Auto) 0.0x10^3/uL (0.0-0.7) Basophils # (Auto) 0.1x10^3/uL (0.0-0.2) Sodium Level 134mmol/L (136-145) Potassium Level 4.0mmol/L (3.5-5.1) Chloride Level 101mmol/L (98-107) Carbon Dioxide Level 23mmol/L (21-32) Anion Gap 10 (6-14) Blood Urea Nitrogen 10mg/dL (7-20) Creatinine 0.9mg/dL (0.6-1.0) Estimated GFR (Cockcroft-Gault) 94.7 BUN/Creatinine Ratio 11 (6-20) Glucose Level 84mg/dL (70-99) Lactic Acid Level 1.6mmol/L (0.4-2.0) 0.8mmol/L (0.4-2.0) Calcium Level 8.5mg/dL (8.5-10.1) Magnesium Level 1.6mg/dL (1.8-2.4) Total Bilirubin 0.4mg/dL (0.2-1.0) Aspartate Amino Transf (AST/SGOT) 19U/L (15-37) Alanine Aminotransferase (ALT/SGPT) 18U/L (14-59) Alkaline Phosphatase 113U/L (46-116) Total Protein 8.0g/dL (6.4-8.2) Albumin 2.9g/dL (3.4-5.0) Albumin/Globulin Ratio 0.6 (1.0-1.7) Urine Collection Type U cath Urine Color Yellow Urine Clarity Clear Urine pH 6.0 Urine Specific [place] 1.010 Urine Protein Negativemg/dL (NEG-TRACE) Urine Glucose (UA) Negativemg/dL (NEG) Urine Ketones (Stick) Negativemg/dL (NEG) Urine Blood Large (NEG) Urine Nitrite Negative (NEG) Urine Bilirubin Negative (NEG) Urine Urobilinogen Dipstick 1.0mg/dL (0.2 mg/dL) Urine Leukocyte Esterase Large (NEG) Urine RBC 3-5/HPF (0-2) Urine WBC 11-20/HPF (0-4) Urine Squamous Epithelial Cells Occ/LPF Urine Transitional Epithelial Cells Occ/LPF Urine Amorphous Sediment Present/HPF Urine Bacteria Moderate/HPF (0-FEW) Urine Mucus Slight/LPF Influenza Type A Antigen Negative (NEGATIVE) Influenza Type B Antigen Negative (NEGATIVE) VTE Prophylaxis Ordered VTE Prophylaxis Devices: No ASHLIE MONDRAGON MD Oct 22, 2016 18:35
[2016-10-22 18:37] VITALS: BP 121/57
[2016-10-22] MEDS ORDERED: hydrALAZINE 20 MG/ML VIAL. IVP PRN (18:45)
[2016-10-22] MEDS ORDERED: ALBUTEROL SULFATE 2.5 MG/3 ML NEBU. NEB PRN (18:45)
[2016-10-22] MEDS ORDERED: HYDROCODONE/APAP 5/325MG TABLET. PO PRN (18:45)
[2016-10-22 19:00] VITALS: BP 115/54
[2016-10-22] MEDS: PIPERACILLIN/TAZOBACTAM 4.5 GM in IV NORMAL SALINE 100ML 100 ML IV SCH (21:26)
[2016-10-22 23:00] VITALS: BP 108/62
[2016-10-22] MEDS: VANCOMYCIN 1.25 GM in IV NORMAL SALINE 250ML 250 ML IV SCH (23:24)
--- NOTE | 2016-10-23 00:59 | HP ---
ADMIT DATE: 10/22/2016 CHIEF COMPLAINT: Fever and weakness. HISTORY OF PRESENT ILLNESS: A 21-year-old female patient who had normal vaginal delivery on 10/13/2016 brought to the hospital by boyfriend for complaints of fever and seizure like activity. As per description of boyfriend, the patient noted to have seizure like activity and the patient was complaining of __coldness in the body and also she had noted to have temperature of 103.2. At the time of seizure like activity, the patient was not responding and her eyes rolled upwards and the patient got confused after the episode. She never had a seizure like activity in the past. Her hypertension was controlled and was not complicated with any medical conditions. She has never been diagnosed with any preeclampsia or eclampsia. PAST MEDICAL HISTORY: Denies any past medical history. FAMILY HISTORY: No seizure like activity. PERSONAL HISTORY: No smoking, no alcohol, no drug abuse. REVIEW OF SYSTEMS: CONSTITUTIONAL: Fever. EYES: No recent vision changes. SKIN: No rash or itching. CARDIOVASCULAR: No chest pain, syncope, palpitations or edema. RESPIRATORY: No shortness of breath, cough. GASTROINTESTINAL: No nausea, vomiting, diarrhea or abdominal pain. NEUROLOGICAL: Seizures. ENDOCRINOLOGIC: No cold or heat intolerance. GENITOURINARY: No burning with urination, no urgency. MUSCULOSKELETAL: No back pain or joint pain. LYMPHATICS: No enlarged nodes. PSYCHIATRIC: No anxiety or depression. PHYSICAL EXAMINATION: At the time of my examination: VITAL SIGNS: Temperature is 100.3, blood pressure is 121/67, pulse is 99, room air 99 saturations. GENERAL: The patient is responding very slowly, otherwise, she is alert and oriented x 3. HEENT: Head normocephalic, atraumatic. NECK: Supple. LUNGS: Clear to auscultation. Normal air entry, normal breath sounds. HEART: Regular rate and rhythm; S1, S2 present; pulses intact. ABDOMEN: Soft, nontender, no organomegaly. EXTREMITIES: No cyanosis or edema. NEUROLOGIC: Normal speech and normal tone; alert and oriented. PSYCHIATRIC: Normal affect, normal mood. SKIN: No ulceration. LABORATORY REVIEW: WBC 10.7, hemoglobin is 8.8, MCV is 80, platelets 415. Chemistry: Sodium is 134, potassium is 4.0, chloride is 101, creatinine is 0.9, BUN is 10, lactic acid 1.6, total protein 8.0. IMAGING STUDIES: Chest x-ray, no acute pulmonary process seen. ____ hypomagnesemia. ASSESSMENT: 1. Fever, unclear etiology. 2. Seizure like activity, present on admission. 3. Recent normal vaginal delivery on 10/13/2016. PLAN: 1. The patient has been admitted to med/surg floor and she was started on broad spectrum antibiotics for suspected infection. 2. Chest x-ray did not show any source of infection. The patient denies any vaginal tampons or any packing or complicated course of vaginal delivery. ____ has been replaced with IV magnesium. 3. At the time of my examination, she is alert and oriented, no seizure like activity noted. She has been recovering well. 4. Seizure precautions. 5. I will order CT of the head without contrast. 6. I will consult COACH WIRER and neurology for further evaluation. 7. Education about not to drive. 8. Boyfriend at bedside, all questions answered. 9. Prognosis is guarded. ASHLIE MONDRAGON MD DR: JUAN M/elisa JOB#: [id number] / [id number]
[2016-10-23] MEDS: PIPERACILLIN/TAZOBACTAM 4.5 GM in IV NORMAL SALINE 100ML 100 ML IV SCH ×3 (01:59→12:36)
[2016-10-23 03:00] VITALS: BP 111/64
[2016-10-23 05:54] LABS: BASO # 0.1 x10^3/uL (0.0-0.2); BASO % 0 % (0-3); EOS % 0 % (0-3); HEMATOCRIT 25.1 % (36.0-47.0); LYMPH # 1.9 x10^3/uL (1.0-4.8); LYMPH % 13 % (24-48); MEAN CORPUSCULAR HEMOGLOBIN 25 pg (25-35); MEAN CORPUSCULAR HGB CONC 32 g/dL (31-37); MEAN CORPUSCULAR VOLUME 79 fL (79-100); MONO % 4 % (0-9); NEUT % 82 % (31-73); PLATELET COUNT 416 x10^3/uL (140-400); RED BLOOD COUNT 3.16 x10^6/uL (3.50-5.40); RED CELL DISTRIBUTION WIDTH 14.9 % (11.5-14.5); WHITE BLOOD COUNT 14.1 x10^3/uL (4.0-11.0)
[2016-10-23 06:11] LABS: GFR 83.9; POTASSIUM 4.3 mmol/L (3.5-5.1)
--- NOTE | 2016-10-23 06:23 | EKG ---
[facility] [address] [place] [address] Test Date: 2016-10-22 Test Time: 14:15:20 Pat Name: BRIGID RUCKER Department: Room: Gender: F Bridges Supervisor: : [id number] Requested By: OLGA LIDIA FINN Order Number: [id number] Reading MD: Measurements Intervals [place] Rate: 141 P: 31 OR: 132 QRS: 97 QRSD: 82 T: 37 QT: 274 QTc: 422 Interpretive Statements SINUS TACHYCARDIA RIGHTWARD AXIS QRS(T) CONTOUR ABNORMALITY CONSIDER ANTEROLATERAL MYOCARDIAL DAMAGE CONSIDER INFERIOR MYOCARDIAL DAMAGE POSSIBLY ABNORMAL ECG RI6.01 No previous ECG available for comparison
[2016-10-23] MEDS: VANCOMYCIN 1.25 GM in IV NORMAL SALINE 250ML 250 ML IV SCH (06:56)
[2016-10-23 07:00] VITALS: BP 133/79
[2016-10-23] MEDS ORDERED: VANCOMYCIN PER PHARMACY MC PRN (07:30)
--- NOTE | 2016-10-23 08:39 | RAD ---
EXAM: Head CT without contrast. HISTORY: Seizure. TECHNIQUE: Computed tomographic images of the head were obtained without contrast. COMPARISON: None. FINDINGS: There is no acute or subacute extra-axial or intraparenchymal hemorrhage. There is no mass effect or midline shift. There is no hydrocephalus. The diaz-white matter differentiation pattern is intact The visualized portions of the orbits, paranasal sinuses and mastoid air cells are unremarkable. No suspicious calvarial lesion is seen. IMPRESSION: No acute intracranial findings. PQRS Compliance Statement: One or more of the following individualized dose reduction techniques were utilized for this examination: 1. Automated exposure control 2. Adjustment of the mA and/or kV according to patient size 3. Use of iterative reconstruction technique
[2016-10-23] MEDS ORDERED: IV NORMAL SALINE 1000ML BAG 1,000 ML IV SCH (09:00)
[2016-10-23 10:58] VITALS: BP 131/69
[2016-10-23] MEDS ORDERED: GADOBUTROL 10 MMOL/10 ML VIAL IV ONE (11:00)
--- NOTE | 2016-10-23 11:51 | RAD ---
PROCEDURE MRI brain without and with contrast. HISTORY times 10 days, symptoms of eclampsia TECHNIQUE Multiplanar, multi sequential pre and post-contrast imaging was performed of the brain. Contrast: 10 cc Gadavist. COMPARISON None FINDINGS There is motion degradation. There is no restricted diffusion suggestive of a recent infarct or cytotoxic edema. There is no nodular parenchymal or leptomeningeal enhancement. The ventricles, sulci, cisterns are within normal limits in size and configuration. Allowing for motion, there is no convincing focal signal abnormality including hemosiderin deposition of the brain parenchyma. There is preservation of the major arterial intracranial flow voids at the skull base. There is patchy very mild sphenoid sinus mucosal thickening, also minimally of the left frontal sinus. Mastoid air cells are overall aerated. Cerebellar tonsils are normal in location. There is nonspecific relative low signal of the marrow of non expanded clivus likely due to residual red marrow. There is no significant abnormality of the pineal gland or pituitary gland. There is likely complex mucous retention cyst of the inferomedial left maxillary sinus 1.2 cm. There is mild nonspecific prominence of the adenoids. IMPRESSION Exam is degraded by motion, no significant intracranial abnormality identified. Electronically signed by: Sekou Lo MD (Oct 23, 2016 11:49:59)
--- NOTE | 2016-10-23 12:04 | PDOC2 ---
NEUROLOGY CONSULT Date of Admission Date of Admission DATE: 10/23/16 TIME: 11:58 Reason for Consult Reason for Consult: Seizures Referring Physician Referring Physician: Dr. Nazario Epic Prelude Analyst: Dr. Torrez Source Source: Chart review, Patient History of Present Illness History of Present Illness The patient is a 21-year-old right-handed female who had 2 convulsive seizures yesterday. She is 11 days . was mostly uncomplicated. She denies confusion, headache, drug abuse, fevers, chills. However, she did have a high fever and emergency department and was determined to have urinary tract infection and sepsis syndrome. She denies any prior history of stroke, seizure, or head injury. She feels better today and wants to go home. (I was not notified of this consult) Past Medical History Grav: 1 Para: 1 Past Surgical History Past Surgical History: No pertinent history Family History Family History: No pertinent hx (No history of seizures in family) Social History Social History Unemployed, no tobacco, alcohol, street drugs, just had a baby as stated above. Current Medications Current Medications Current Medications Sodium Chloride (Iv Sodium Chloride 0.9% 1000ml Bag) 1,000 ml @ 750 mls/hr Q1H20M IV Last administered on 10/22/16 20:50; Start 10/22/16 at 14:28; Stop 10/22/16 at 18:27; Status DC Vancomycin HCl (Vanco Per Pharmacy) 1 each 1X ONCE MC Last administered on 14:30; Start 10/22/16 at 14:30; Stop 10/22/16 at 17:22; Status DC Piperacillin Sod/ Tazobactam Sod (Zosyn Per Pharmacy) 1 each PRN DAILY PRN MC SEE COMMENTS; Start 10/22/16 at 14:30 Lorazepam (Ativan) 1 mg 1X ONCE IV Last administered on 10/22/16 14:53; Start 10/22/16 at 14:30; Stop 10/22/16 at 14:34; Status DC Acetaminophen 1000 mg 1,000 mg 1X ONCE PO Last administered on 10/22/16 14:52 ; Start 10/22/16 at 14:45; Stop 10/22/16 at 14:46; Status DC Vancomycin HCl 2 gm/Sodium Chloride 500 ml @ 250 mls/hr 1X ONCE IV Last administered on 10/22/16 15:25; Start 10/22/16 at 14:45; Stop 10/22/16 at 16:44 ; Status DC Piperacillin Sod/ Tazobactam Sod 4.5 gm/Sodium Chloride 100 ml @ 200 mls/hr ONCE ONCE IV Last administered on 10/22/16 14:49; Start 10/22/16 at 14:45; Stop 10/22/16 at 15:14; Status DC Magnesium Sulfate/ Dextrose 100 ml @ 25 mls/hr 1X ONCE IV ; Start 10/22/16 at 14:45; Stop 10/22/16 at 14:45; Status DC Magnesium Sulfate/ Dextrose (Magnesium Sulfate PREMIX 2GM) 50 ml @ 25 mls/hr 1X ONCE IV Last administered on 10/22/16 14:56; Start 10/22/16 at 14:45; Stop 10/22/16 at 16:44; Status DC Ondansetron HCl (Zofran) 4 mg PRN Q8HRS PRN IV NAUSEA/VOMITING; Start 10/22/16 at 16:15; Stop 10/23/16 at 16:14 Morphine Sulfate 2 mg PRN Q2HR PRN IV PAIN; Start 10/22/16 at 16:15; Stop 10/23 at 16:14 Acetaminophen 650 mg 650 mg PRN Q4HRS PRN PO FEVER; Start 10/22/16 at 16:15; Stop 10/23/16 at 16:14 Piperacillin Sod/ Tazobactam Sod 4.5 gm/Sodium Chloride 100 ml @ 200 mls/hr Q6HRS IV Last administered on 10/23/16 05:50; Start 10/22/16 at 20:00 Vancomycin HCl/ Sodium Chloride (Iv Sodium Chloride 0.9% 250ml) 250 ml @ 167 mls/hr Q8H IV Last administered on 10/23/16 06:56; Start 10/22/16 at 23:00 Vancomycin HCl 1 each 1 each 1X ONCE MC ; Start 10/23/16 at 14:30; Stop at 14:31 Sodium Chloride (Iv Sodium Chloride 0.9% 1000ml Bag) 1,000 ml @ 125 mls/hr DAILY IV Last administered on 10/23/16 11:53; Start 10/23/16 at 09:00 Acetaminophen (Tylenol) 325 mg PRN Q6HRS PRN PO MILD PAIN / TEMP; Start at 18:45 Acetaminophen/ Hydrocodone Bitart (Lortab 5/325) 1 tab PRN Q6HRS PRN PO MODERATE TO SEVERE PAIN; Start 10/22/16 at 18:45 Hydralazine HCl (Apresoline) 10 mg PRN Q4HRS PRN IVP ELEVATED BP, SEE COMMENTS ; Start 10/22/16 at 18:45 Ondansetron HCl (Zofran) 4 mg PRN Q8HRS PRN IV NAUSEA/VOMITING 1ST CHOICE; Start 10/22/16 at 18:45 Albuterol Sulfate (Ventolin Neb Soln) 2.5 mg PRN Q4HRS PRN NEB SHORTNESS OF BREATH; Start 10/22/16 at 18:45 Vancomycin HCl (Vanco Per Pharmacy) 1 each PRN DAILY PRN MC SEE COMMENTS; Start 10/23/16 at 07:30 Gadobutrol (Gadavist) 10 mmol 1X ONCE IV Last administered on 10/23/16t 11:26 ; Start 10/23/16 at 11:00; Stop 10/23/16 at 11:01; Status DC Active Scripts Active Naproxen 500 Mg Tablet 1 Tab PO BID [place] 5-325 Tablet (Acetaminophen/Hydrocodone Bitart) 1 Each Tablet 1 Tab PO PRN Q6HRS PRN Allergies Allergies: Coded Allergies: shellfish derived (Verified Allergy, Intermediate, 10/09/16) ROS Review of System Negative for fevers, chills, weight loss, shortness of breath, chest pain, indigestion, hematochezia, melena, dysuria. Full 14-point review systems is negative. Physical Exam Physical Examination PHYSICAL EXAMINATION: Vital signs: see above. General appearance is normal and in no acute distress. HEENT: Normocephalic and nontraumatic. Eyes, nose, ears, and throat are unremarkable. Neck is supple. No lymphadenopathy. No bruits are heard over the carotid artery. No crepitus. NEUROLOGICAL EXAMINATION: Mental Status Examination: Alert. Oriented to time, place, and person. Answers questions and follows commends. She does have a depressed, flat affect. Pupils are equal round and reactive to light and accommodation. Funduscopic exam: No papilledema. Extraocular movements are intact. Visual field exam shows no defect on the direct confrontation. No motor or sensory deficits on the facial exam. Uvula in the midline and the soft palate elevated symmetrically. No deviation of the tongue to any direction. Gross hearing is normal. Shoulder shrug normal. Muscle tone is normal. Muscle strength is 5. Deep tendon reflexes are 2+ all around. Plantar reflex is with flexion response bilaterally. [id number] test performance is accurate. Tandem walk test is accurate. Alternative movements are accurate. Romberg test is negative. Gait is normal. Sensory exam shows no deficits. No cerebellar signs are elicited. Vitals VITALS Vital Signs Date Time Temp Pulse Resp B/P Pulse Ox O2 Delivery O2 Flow Rate FiO2 10/23/16 10:58 98.3 92 18 131/69 97 Room Air 98.3 10/23/16 08:00 2.0 Labs Labs Laboratory Tests Test 10/22/16 14:15 10/22/16 14:20 10/22/16 15:10 10/22/16 16:22 White Blood Count 10.7x10^3/uL (4.0-11.0) Red Blood Count 3.45x10^6/uL (3.50-5.40) Hemoglobin 8.8g/dL (12.0-15.5) Hematocrit 27.6% (36.0-47.0) Mean Corpuscular Volume 80fL (79-100) Mean Corpuscular Hemoglobin 26pg (25-35) Mean Corpuscular Hemoglobin Concent 32g/dL (31-37) Red Cell Distribution Width 14.7% (11.5-14.5) Platelet Count 415x10^3/uL (140-400) Neutrophils (%) (Auto) 90% (31-73) Lymphocytes (%) (Auto) 9% (24-48) Monocytes (%) (Auto) 1% (0-9) Eosinophils (%) (Auto) 0% (0-3) Basophils (%) (Auto) 1% (0-3) Neutrophils # (Auto) 9.6x10^3uL (1.8-7.7) Lymphocytes # (Auto) 0.9x10^3/uL (1.0-4.8) Monocytes # (Auto) 0.1x10^3/uL (0.0-1.1) Eosinophils # (Auto) 0.0x10^3/uL (0.0-0.7) Basophils # (Auto) 0.1x10^3/uL (0.0-0.2) Sodium Level 134mmol/L (136-145) Potassium Level 4.0mmol/L (3.5-5.1) Chloride Level 101mmol/L (98-107) Carbon Dioxide Level 23mmol/L (21-32) Anion Gap 10 (6-14) Blood Urea Nitrogen 10mg/dL (7-20) Creatinine 0.9mg/dL (0.6-1.0) Estimated GFR (Cockcroft-Gault) 94.7 BUN/Creatinine Ratio 11 (6-20) Glucose Level 84mg/dL (70-99) Lactic Acid Level 1.6mmol/L (0.4-2.0) 0.8mmol/L (0.4-2.0) Calcium Level 8.5mg/dL (8.5-10.1) Magnesium Level 1.6mg/dL (1.8-2.4) Total Bilirubin 0.4mg/dL (0.2-1.0) Aspartate Amino Transf (AST/SGOT) 19U/L (15-37) Alanine Aminotransferase (ALT/SGPT) 18U/L (14-59) Alkaline Phosphatase 113U/L (46-116) Total Protein 8.0g/dL (6.4-8.2) Albumin 2.9g/dL (3.4-5.0) Albumin/Globulin Ratio 0.6 (1.0-1.7) Urine Collection Type U cath Urine Color Yellow Urine Clarity Clear Urine pH 6.0 Urine Specific [place] 1.010 Urine Protein Negativemg/dL (NEG-TRACE) Urine Glucose (UA) Negativemg/dL (NEG) Urine Ketones (Stick) Negativemg/dL (NEG) Urine Blood Large (NEG) Urine Nitrite Negative (NEG) Urine Bilirubin Negative (NEG) Urine Urobilinogen Dipstick 1.0mg/dL (0.2 mg/dL) Urine Leukocyte Esterase Large (NEG) Urine RBC 3-5/HPF (0-2) Urine WBC 11-20/HPF (0-4) Urine Squamous Epithelial Cells Occ/LPF Urine Transitional Epithelial Cells Occ/LPF Urine Amorphous Sediment Present/HPF Urine Bacteria Moderate/HPF (0-FEW) Urine Mucus Slight/LPF Influenza Type A Antigen Negative (NEGATIVE) Influenza Type B Antigen Negative (NEGATIVE) Test 10/23/16 05:10 White Blood Count 14.1x10^3/uL (4.0-11.0) Red Blood Count 3.16x10^6/uL (3.50-5.40) Hemoglobin 8.0g/dL (12.0-15.5) Hematocrit 25.1% (36.0-47.0) Mean Corpuscular Volume 79fL (79-100) Mean Corpuscular Hemoglobin 25pg (25-35) Mean Corpuscular Hemoglobin Concent 32g/dL (31-37) Red Cell Distribution Width 14.9% (11.5-14.5) Platelet Count 416x10^3/uL (140-400) Neutrophils (%) (Auto) 82% (31-73) Lymphocytes (%) (Auto) 13% (24-48) Monocytes (%) (Auto) 4% (0-9) Eosinophils (%) (Auto) 0% (0-3) Basophils (%) (Auto) 0% (0-3) Neutrophils # (Auto) 11.6x10^3uL (1.8-7.7) Lymphocytes # (Auto) 1.9x10^3/uL (1.0-4.8) Monocytes # (Auto) 0.6x10^3/uL (0.0-1.1) Eosinophils # (Auto) 0.0x10^3/uL (0.0-0.7) Basophils # (Auto) 0.1x10^3/uL (0.0-0.2) Sodium Level 140mmol/L (136-145) Potassium Level 4.3mmol/L (3.5-5.1) Chloride Level 109mmol/L (98-107) Carbon Dioxide Level 25mmol/L (21-32) Anion Gap 6 (6-14) Blood Urea Nitrogen 8mg/dL (7-20) Creatinine 1.0mg/dL (0.6-1.0) Estimated GFR (Cockcroft-Gault) 83.9 Glucose Level 72mg/dL (70-99) Calcium Level 8.0mg/dL (8.5-10.1) Laboratory Tests Test 10/22/16 14:15 10/22/16 14:20 10/22/16 15:10 10/22/16 16:22 White Blood Count 10.7x10^3/uL (4.0-11.0) Red Blood Count 3.45x10^6/uL (3.50-5.40) Hemoglobin 8.8g/dL (12.0-15.5) Hematocrit 27.6% (36.0-47.0) Mean Corpuscular Volume 80fL (79-100) Mean Corpuscular Hemoglobin 26pg (25-35) Mean Corpuscular Hemoglobin Concent 32g/dL (31-37) Red Cell Distribution Width 14.7% (11.5-14.5) Platelet Count 415x10^3/uL (140-400) Neutrophils (%) (Auto) 90% (31-73) Lymphocytes (%) (Auto) 9% (24-48) Monocytes (%) (Auto) 1% (0-9) Eosinophils (%) (Auto) 0% (0-3) Basophils (%) (Auto) 1% (0-3) Neutrophils # (Auto) 9.6x10^3uL (1.8-7.7) Lymphocytes # (Auto) 0.9x10^3/uL (1.0-4.8) Monocytes # (Auto) 0.1x10^3/uL (0.0-1.1) Eosinophils # (Auto) 0.0x10^3/uL (0.0-0.7) Basophils # (Auto) 0.1x10^3/uL (0.0-0.2) Sodium Level 134mmol/L (136-145) Potassium Level 4.0mmol/L (3.5-5.1) Chloride Level 101mmol/L (98-107) Carbon Dioxide Level 23mmol/L (21-32) Anion Gap 10 (6-14) Blood Urea Nitrogen 10mg/dL (7-20) Creatinine 0.9mg/dL (0.6-1.0) Estimated GFR (Cockcroft-Gault) 94.7 BUN/Creatinine Ratio 11 (6-20) Glucose Level 84mg/dL (70-99) Lactic Acid Level 1.6mmol/L (0.4-2.0) 0.8mmol/L (0.4-2.0) Calcium Level 8.5mg/dL (8.5-10.1) Magnesium Level 1.6mg/dL (1.8-2.4) Total Bilirubin 0.4mg/dL (0.2-1.0) Aspartate Amino Transf (AST/SGOT) 19U/L (15-37) Alanine Aminotransferase (ALT/SGPT) 18U/L (14-59) Alkaline Phosphatase 113U/L (46-116) Total Protein 8.0g/dL (6.4-8.2) Albumin 2.9g/dL (3.4-5.0) Albumin/Globulin Ratio 0.6 (1.0-1.7) Urine Collection Type U cath Urine Color Yellow Urine Clarity Clear Urine pH 6.0 Urine Specific [place] 1.010 Urine Protein Negativemg/dL (NEG-TRACE) Urine Glucose (UA) Negativemg/dL (NEG) Urine Ketones (Stick) Negativemg/dL (NEG) Urine Blood Large (NEG) Urine Nitrite Negative (NEG) Urine Bilirubin Negative (NEG) Urine Urobilinogen Dipstick 1.0mg/dL (0.2 mg/dL) Urine Leukocyte Esterase Large (NEG) Urine RBC 3-5/HPF (0-2) Urine WBC 11-20/HPF (0-4) Urine Squamous Epithelial Cells Occ/LPF Urine Transitional Epithelial Cells Occ/LPF Urine Amorphous Sediment Present/HPF Urine Bacteria Moderate/HPF (0-FEW) Urine Mucus Slight/LPF Influenza Type A Antigen Negative (NEGATIVE) Influenza Type B Antigen Negative (NEGATIVE) Test 10/23/16 05:10 White Blood Count 14.1x10^3/uL (4.0-11.0) Red Blood Count 3.16x10^6/uL (3.50-5.40) Hemoglobin 8.0g/dL (12.0-15.5) Hematocrit 25.1% (36.0-47.0) Mean Corpuscular Volume 79fL (79-100) Mean Corpuscular Hemoglobin 25pg (25-35) Mean Corpuscular Hemoglobin Concent 32g/dL (31-37) Red Cell Distribution Width 14.9% (11.5-14.5) Platelet Count 416x10^3/uL (140-400) Neutrophils (%) (Auto) 82% (31-73) Lymphocytes (%) (Auto) 13% (24-48) Monocytes (%) (Auto) 4% (0-9) Eosinophils (%) (Auto) 0% (0-3) Basophils (%) (Auto) 0% (0-3) Neutrophils # (Auto) 11.6x10^3uL (1.8-7.7) Lymphocytes # (Auto) 1.9x10^3/uL (1.0-4.8) Monocytes # (Auto) 0.6x10^3/uL (0.0-1.1) Eosinophils # (Auto) 0.0x10^3/uL (0.0-0.7) Basophils # (Auto) 0.1x10^3/uL (0.0-0.2) Sodium Level 140mmol/L (136-145) Potassium Level 4.3mmol/L (3.5-5.1) Chloride Level 109mmol/L (98-107) Carbon Dioxide Level 25mmol/L (21-32) Anion Gap 6 (6-14) Blood Urea Nitrogen 8mg/dL (7-20) Creatinine 1.0mg/dL (0.6-1.0) Estimated GFR (Cockcroft-Gault) 83.9 Glucose Level 72mg/dL (70-99) Calcium Level 8.0mg/dL (8.5-10.1) Images Images MRI of the brain negative, CT head also negative Assessment/Plan Assessment/Plan Impression: Seizures, probably related to urinary tract infection was sepsis and she also had low magnesium level. I find no evidence of eclampsia. She is feeling better now. Consider some post depression i Recommendations: MRI of the brain, done, reviewed above Electroencephalogram Hold on anticonvulsants and less EEG is abnormal Aim for discharge later today or tomorrow. I told the patient that she cannot drive until 6 months without a seizure. Thank you for letting me help the patient's care. GENNARO FLAHERTY MD Oct 23, 2016 12:04
[2016-10-23] MEDS ORDERED: CIPR250T30 PO (13:33)
== END 2016-10-23 15:20 | disposition home or self-care (01) | DRG 776 ==
LOC: ER 14:15 → 5 SOUTH 15:59
PROVIDERS: ADMIT Internal Medicine; ATTEND Internal Medicine
DX: O85 Puerperal sepsis (principal); N39.0 Urinary tract infection, site not specified; F53 Mental and behavioral disorders associated with the puerperium, not elsewhere classified; D64.9 Anemia, unspecified; E83.42 Hypomagnesemia; R56.9 Unspecified convulsions; Z91.013 Allergy to seafood
CPT/HCPCS: 36415; 51701; 70450; 70553; 71010; 80048; 80053; 81001; 83605; 83735; 85027; 87040; 87086; 87804; 93005; 94250; 94760; 96365; 96366; 96368; 96375; J2060; J2543; J3370; J7030; J7040; J7050; J7060; 99285-25

== ENCOUNTER 2018-07-02 07:27 | Emergency (ER) | payer SELFPAY ==
[~2018-07-02] VITALS: Ht 157.5 cm; Wt 86.2 kg
[~2018-07-02 07:27] MED LIST changes: +CIPR250T30 PO; +NAPR-514 PO; -NAPR500T3 PO
[2018-07-02 07:37] VITALS: BP 170/87
[2018-07-02] MEDS ORDERED: HYDROcodone/APAP 5/325MG 1 TAB TABLET PO ONE (08:15)
[2018-07-02] MEDS ORDERED: ACETAMINOPHEN 500 MG TABLET PO ONE (08:15)
--- NOTE | 2018-07-02 08:18 | PHYS DOC ---
Past Medical History Past Medical History: No Pertinent History Past Surgical History: No Surgical History Alcohol Use: None Drug Use: None Adult General Chief Complaint Chief Complaint: HAND PROBLEM HPI HPI Patient is a 23 year old female who presents with right hand injury. The patient states she fell and landed on her right hand. She complains of pain and swelling over the dorsal ulnar aspect of the hand. She did not sustain any additional injury. Patient is uncertain when her last period was and states it is possible that she could be . She denies any additional injuries or complaints today. Review of Systems Review of Systems Constitutional: Denies fever Eyes: Denies change in visual acuity HENT: Denies nasal congestion Respiratory: Denies cough or shortness of breath Cardiovascular: No additional information not addressed in HPI : Denies Musculoskeletal: Denies back pain Integument: Denies rash or skin lesions All other systems were reviewed and found to be within normal limits, except as documented in this note. Current Medications Current Medications Current Medications Medications (Trade) Dose Ordered Sig/Yanet Start Time Stop Time Status Last Admin Dose Admin Acetaminophen (Tylenol) 500 mg 1X ONCE 07/02/18 08:15 07/02/18 08:16 DC 07/02/18 08:30 500 MG Acetaminophen/ Hydrocodone Bitart (Lortab 5/325) 1 tab 1X ONCE 07/02/18 08:15 07/02/18 08:16 DC 07/02/18 08:30 1 TAB Lidocaine HCl (Xylocaine 1% Pf 30ml Vial) 20 ml 1X ONCE 07/02/18 09:30 07/02/18 09:31 DC Allergies Allergies Allergies Coded Allergies Type Severity Reaction Last Updated Verified shellfish derived Allergy Intermediate 10/09/16 Yes Physical Exam Physical Exam Constitutional: Well developed, well nourished, no acute distress, non-toxic appearance HENT: Normocephalic, atraumatic, bilateral external ears normal, oropharynx moist Neck: Normal range of motion Cardiovascular:Heart rate regular rhythm, no murmur Lungs & Thorax: Bilateral breath sounds clear to auscultation Skin: Warm, dry, no erythema, no rash Back: No tenderness Extremities: swelling over the 5th MTC on the ulnar aspect of the dorsal right hand. Distal cap refill < 2 seconds. Sensation to light touch intact over all dermatomes. All fingers have normal alignment with flexion. Neurologic: Alert and oriented X 3 Psychologic: Affect normal, judgement normal, mood normal Current Patient Data Vital Signs Vital Signs Date Time Temp Pulse Resp B/P (MAP) Pulse Ox O2 Delivery O2 Flow Rate FiO2 07/02/18 07:37 98.4 108 20 170/87 (114) 99 Room Air 98.4 Lab Values Laboratory Tests Test 07/02/18 07:55 POC Urine HCG, Qualitative Hcg positive (Negative) EKG EKG [] Radiology/Procedures Radiology/Procedures displaced Fx of 5th MTC. No significant dorsal displacement. Course & Med Decision Making Course & Med Decision Making Pertinent Labs and Imaging studies reviewed. (See chart for details) Patient is seen and examined. Isolated hand injury. UCG and xray ordered. Pain medications. 10:30: Patient was evaluated in the ER for fracture of the right fifth metacarpal bone. I discussed this patient with orthopedics. Patient is self- pay. Plan is attempted reduction in the ER and splinting and patient will follow up with orthopedics next week. The patient's hand was placed into a finger trap and traction was applied. A hematoma block was performed with a total of 4 mL of 1% lidocaine. The bone was manually manipulated and attempted reduction. The reduction attempt was only mildly successful. Splint was placed. The patient had full normal neurovascular and motor function both before the splinting and reduction attempt and after. Patient will be discharged home and she'll follow up with orthopedic next week. There was no significant malrotation of the digits on physical exam. Given norco for pain. Opiate precautions also discussed. Dragon Disclaimer Dragon Disclaimer This electronic medical record was generated, in whole or in part, using a voice recognition dictation system. Departure Departure Referrals: NO PCP (PCP) Scripts Hydrocodone/Apap 5-325 (NORCO 5-325 TABLET) 1 Each Tablet 1-2 EACH PO PRN Q6HRS PRN for severe pain, #20 as needed for pain Prov: LEI SERRANO DO 07/02/18 LEI SERRANO DO Jul 02, 2018 08:18
--- NOTE | 2018-07-02 09:10 | RAD ---
EXAM: Right hand, 3 views. HISTORY: Fall. COMPARISON: None. FINDINGS: 3 views of the right hand are obtained. There is a displaced proximal to mid fifth metacarpal fracture with nearly one full shaft width displacement along the fracture line. There is overlying soft tissue swelling. IMPRESSION: Displaced right fifth metacarpal fracture. Electronically signed by: Sandra Quesada MD (07/02/2018 9:07 AM) [email or web address]
[2018-07-02] MEDS ORDERED: LIDOCAINE 1% PF 30 ML VIAL. INJ ONE (09:30)
[2018-07-02] MEDS ORDERED: HYDR-971 PO (10:35)
--- NOTE | 2018-07-02 11:31 | RAD ---
EXAM: Right hand, 5 views. HISTORY: Fracture postreduction. COMPARISON: Radiograph obtained on the same date. FINDINGS: 5 views of the right hand are obtained during a closed reduction procedure. The initial post reduction images demonstrate no significant change in a displaced proximal to mid fifth metacarpal fracture with approximately one shaft width displacement along the fracture line. There is decreased displacement along the fracture line on the third post reduction image to approximately 2 cortical widths and there is nearly a half of a shaft width of displacement on the fourth post reduction image with overlying casting material. The final image is a lateral view demonstrating no significant angulation along the fracture line. IMPRESSION: Multiple serial images of the right hand during a closed reduction procedure demonstrating slight improved alignment and no significant angulation along a proximal to mid fifth metacarpal fracture line compared to the prereduction exam performed on the same date. Electronically signed by: Sandra Quesada MD (07/02/2018 11:27 AM) [email or web address]
== END 2018-07-02 10:55 | disposition home or self-care (01) ==
LOC: ER 07:27
DX: S62.306A Unspecified fracture of fifth metacarpal bone, right hand, initial encounter for closed fracture (principal); Z91.013 Allergy to seafood; W18.30XA Fall on same level, unspecified, initial encounter; Y93.89 Activity, other specified; Y92.89 Other specified places as the place of occurrence of the external cause; Y99.8 Other external cause status
CPT/HCPCS: 26605; 73120; 73130; 81025; 99284

== ENCOUNTER 2019-11-17 10:51 | Emergency (ER) | payer MEDICAID, OTHER ==
[~2019-11-17] VITALS: Ht 157.5 cm; Wt 86.3 kg
[~2019-11-17 10:51] MED LIST changes: +HYDR-3164 PO; -HYDR-971 PO
[2019-11-17 11:48] LABS: BILIRUBIN,URINE SMALL (NEG); COLOR,URINE AMBER; NITRITE,URINE NEGATIVE (NEG); PH,URINE 7.5; PROTEIN,URINE 100 mg/dL (NEG-TRACE)
[2019-11-17 11:50] LABS: CLARITY,URINE HAZY
[2019-11-17 11:51] LABS: BACTERIA,URINE FEW /HPF (0-FEW); RBC,URINE OCC /HPF (0-2); SQUAMOUS EPITHELIAL CELL,UR MANY /LPF; YEAST,URINE PRESENT /HPF
[2019-11-17] MEDS ORDERED: ONDANSETRON ODT 4 MG TAB.RAPDIS. PO ONE (12:45)
[2019-11-17 13:21] VITALS: BP 148/67
[2019-11-17] MEDS ORDERED: ONDA-84 PO (13:23)
--- NOTE | 2019-11-17 13:25 | PHYS DOC ---
Past Medical History Past Medical History: No Pertinent History Past Surgical History: Smoking Status: Never Smoker Alcohol Use: None Drug Use: None Adult General Chief Complaint Chief Complaint: NAUSEA/VOMITING/[facility] HPI Patient is a 24 year old AA female who presents to the emergency department with complaints of nausea, and vomiting for the last 4 days. Patient states that she has a history of irregular menstrual cycles her last menstrual cycle was at the end of July. Patient states she is 2, para 2 she denies taking any test prior to arrival. Patient denies any fever, abdominal pain, diarrhea, dysuria, increased urinary frequency, hematuria, back pain, dizziness, or syncope. She currently denies any pain at this time. Patient states that she has vomited 3 times in last 24 hours. She denies any irregular vaginal discharge or bleeding. She reports having difficulty keeping food down, states she has been able to drink small sips of fluids. Pt reports that her previous OBGyn Dr. Torrez lost his license, so she does not have an OBGyn. All other ROS is neg unless otherwise noted in HPI. Review of Systems Review of Systems See Above Current Medications Current Medications Current Medications Medications (Trade) Dose Ordered Sig/Yanet Start Time Stop Time Status Last Admin Dose Admin Ondansetron HCl (Zofran Odt) 4 mg 1X ONCE 11/17/19 12:45 11/17/19 12:46 DC 11/17/19 12:38 4 MG Allergies Allergies Allergies Coded Allergies Type Severity Reaction Last Updated Verified shellfish derived Allergy Intermediate 10/09/16 Yes Physical Exam Physical Exam See Above Constitutional: Well developed, well nourished, no acute distress, non-toxic appearance, obese [] HENT: Normocephalic, atraumatic, bilateral external ears normal, oropharynx moist, no oral exudates, nose normal. [] Eyes: PERRLA, EOMI, conjunctiva normal, no discharge. [] Neck: Normal range of motion, no stridor. [] Cardiovascular:Heart rate regular rhythm, no murmur [] Lungs & Thorax: Bilateral breath sounds clear to auscultation, Respirations even and unlabored, no retractions, no respiratory distress [] Abdomen: Bowel sounds normal, soft, no tenderness, no masses, no pulsatile masses, no palpable fundus. [] Skin: Warm, dry, no erythema, no rash. [] Back: No CVA tenderness. [] Extremities: No cyanosis, ROM intact, Neurologic: Alert and oriented X 3, no focal deficits noted. [] Psychologic: Affect normal, judgement normal, mood normal. [] Current Patient Data Vital Signs Vital Signs Date Time Temp Pulse Resp B/P (MAP) Pulse Ox O2 Delivery O2 Flow Rate FiO2 11/17/19 12:34 97.6 58 16 155/68 (97) 100 Room Air 97.6 Lab Values Laboratory Tests Test 11/17/19 11:00 11/17/19 11:02 Urine Collection Type Void Urine Color [place] Urine Clarity Hazy Urine pH 7.5 Urine Specific [place] >=1.030 Urine Protein 100 mg/dL (NEG-TRACE) Urine Glucose (UA) Negative mg/dL (NEG) Urine Ketones (Stick) >=80 mg/dL (NEG) Urine Blood Negative (NEG) Urine Nitrite Negative (NEG) Urine Bilirubin Small (NEG) Urine Urobilinogen Dipstick 1.0 mg/dL (0.2 mg/dL) Urine Leukocyte Esterase Trace (NEG) Urine RBC Occ /HPF (0-2) Urine WBC 5-10 /HPF (0-4) Urine Squamous Epithelial Cells Many /LPF Urine Bacteria Few /HPF (0-FEW) Urine Mucus Marked /LPF Urine Yeast Present /HPF POC Urine HCG, Qualitative Hcg positive (Negative) EKG EKG [] Radiology/Procedures Radiology/Procedures [] Course & Med Decision Making Course & Med Decision Making Pertinent Labs and Imaging studies reviewed. (See chart for details) Pt was given a Zofran and PO challenge in the ER. Pt reported decreassed nausea after medication and reports that she would like to go home. PRescription writ ten for Zofran pt encouraged to follow up with Dr. Gonzalez for further evaluation and management of . [] Dragon Disclaimer Dragon Disclaimer This electronic medical record was generated, in whole or in part, using a voice recognition dictation system. Departure Departure Impression: Primary Impression: Nausea/vomiting in Disposition: HOME, SELF-CARE Condition: STABLE Referrals: NO PCP (PCP) DYLAN GONZALEZ MD Patient Instructions: ABCs of , Nausea and Vomiting, [id number] Additional Instructions: Fill prescription and use them as directed. Recommend clear fluids for the next 24 hours. Then you may advance to bland foods such as bananas, rice, applesauce, and dry toast. Follow-up with your Dr. Gonzalez in the next 1-2 days. Return to the emergency room if your symptoms worsen. Scripts Ondansetron Hcl (ONDANSETRON HCL) 4 Mg Tablet 1 TAB PO PRN Q6HRS PRN for NAUSEA/VOMITING for 3 Days, #10 TAB 0 Refills Prov: YASMINE SANCHEZ APRN 11/17/19 YASMINE SANCHEZ APRN Nov 17, 2019 13:25
== END 2019-11-17 13:33 | disposition home or self-care (01) ==
LOC: ER 10:51
DX: O21.9 Vomiting of pregnancy, unspecified (principal); N92.6 Irregular menstruation, unspecified; Z91.013 Allergy to seafood; Z98.890 Other specified postprocedural states
CPT/HCPCS: 81001; 81025; 87086; 99284; Q0162

== ENCOUNTER 2020-01-13 20:50 | Emergency (ER) | payer MEDICAID ==
[~2020-01-13] VITALS: Ht 160 cm; Wt 86.3 kg
[~2020-01-13 20:50] MED LIST changes: +ONDA-84 PO
[2020-01-13] MEDS ORDERED: IV NORMAL SALINE 1000ML BAG 1,000 ML IV SCH (21:30)
[2020-01-13] MEDS ORDERED: ONDANSETRON PF 4 MG/2 ML VIAL. IVP ONE (21:30)
[2020-01-13 21:31] LABS: BASO % 0 % (0-3); EOS % 0 % (0-3); HEMATOCRIT 35.1 % (36.0-47.0); HEMOGLOBIN 11.9 g/dL (12.0-15.5); LYMPH # 1.1 x10^3/uL (1.0-4.8); LYMPH % 11 % (24-48); MEAN CORPUSCULAR HEMOGLOBIN 28 pg (25-35); MEAN CORPUSCULAR HGB CONC 34 g/dL (31-37); MEAN CORPUSCULAR VOLUME 82 fL (79-100); MONO # 0.4 x10^3/uL (0.0-1.1); MONO % 4 % (0-9); NEUT # 9.2 x10^3/uL (1.8-7.7); NEUT % 85 % (31-73); PLATELET COUNT 269 x10^3/uL (140-400); RED BLOOD COUNT 4.29 x10^6/uL (3.50-5.40); RED CELL DISTRIBUTION WIDTH 13.6 % (11.5-14.5); WHITE BLOOD COUNT 10.9 x10^3/uL (4.0-11.0)
[2020-01-13 21:32] LABS: BILIRUBIN,URINE NEGATIVE (NEG); CLARITY,URINE CLEAR; COLOR,URINE AMBER; NITRITE,URINE NEGATIVE (NEG); PROTEIN,URINE 100 mg/dL (NEG-TRACE)
--- NOTE | 2020-01-13 21:38 | PHYS DOC ---
Past Medical History Past Medical History: No Pertinent History Past Surgical History: Smoking Status: Never Smoker Alcohol Use: None Drug Use: None Adult General Chief Complaint Chief Complaint: VOMITING IN HPI HPI Patient is a 24 year old female who presents with complaining of vomiting in . Patient is G2, P1 at 13 weeks of gestation and complaining of 2 episodes of vomiting today at home and one episode of vomiting while she came to emergency room without abdominal pain, vaginal bleeding or discharge, fever and chills, urinary symptoms, diarrhea and constipation. Patient states she had episode of nausea and vomiting during her previous and this and treated with promethazine and Zofran but today her medication did not help for her vomiting. Patient had normal intrauterine and ultrasound was done by her [facility] and has her monthly appointment tomorrow with Dr. Huey Fishman. Review of Systems Review of Systems Constitutional: Denies fever or chills [] Eyes: Denies change in visual acuity, redness, or eye pain [] HENT: Denies nasal congestion or sore throat [] Respiratory: Denies cough or shortness of breath [] Cardiovascular: No additional information not addressed in HPI [] GI: Denies abdominal pain, bloody stools or diarrhea, reports nausea and vomit ing [] : Denies dysuria or hematuria [] Musculoskeletal: Denies back pain or joint pain [] Integument: Denies rash or skin lesions [] Neurologic: Denies headache, focal weakness or sensory changes [] Endocrine: Denies polyuria or polydipsia [] All other systems were reviewed and found to be within normal limits, except as documented in this note. Current Medications Current Medications Current Medications Medications (Trade) Dose Ordered Sig/Yanet Start Time Stop Time Status Last Admin Dose Admin Ondansetron HCl (Zofran) 4 mg 1X ONCE 01/13/20 21:30 01/13/20 21:33 DC 01/13/20 21:42 4 MG Sodium Chloride 1,000 ml @ 1,000 mls/hr Q1H 01/13/20 21:30 01/13/20 22:29 DC 01/13/20 21:42 1,000 MLS/HR Allergies Allergies Allergies Coded Allergies Type Severity Reaction Last Updated Verified shellfish derived Allergy Intermediate 10/09/16 Yes Physical Exam Physical Exam Constitutional: Well developed, well nourished, mild distress, non-toxic appearance. [] HENT: Normocephalic, atraumatic, moist oral mucosa.. Eyes: PERRLA, EOMI, conjunctiva normal, no discharge. [] Neck: Normal range of motion, no tenderness, supple, no stridor. [] Cardiovascular:Heart rate regular rhythm, no murmur [] Lungs & Thorax: Bilateral breath sounds clear to auscultation [] Abdomen: Bowel sounds normal, soft, no tenderness, no masses, no pulsatile masses. [] Skin: Warm, dry, no erythema, no rash. [] Back: No tenderness, no CVA tenderness. [] Extremities: No tenderness, no cyanosis, no clubbing, ROM intact, no edema. [] Neurologic: Alert and oriented X 3, no focal deficits noted. [] Psychologic: Affect normal, judgement normal, mood normal. [] Current Patient Data Vital Signs Vital Signs Date Time Temp Pulse Resp B/P (MAP) Pulse Ox O2 Delivery O2 Flow Rate FiO2 01/13/20 23:03 59 20 158/79 (105) 99 Room Air 01/13/20 21:10 98.7 98.7 Lab Values Laboratory Tests Test 01/13/20 21:04 01/13/20 21:15 01/13/20 21:40 Urine Collection Type Unknown Urine Color Sandi Urine Clarity Clear Urine pH 8.0 (<5.0-8.0) Urine Specific [place] >=1.030 (1.000-1.030) Urine Protein 100 mg/dL (NEG-TRACE) Urine Glucose (UA) Negative mg/dL (NEG) Urine Ketones (Stick) >=80 mg/dL (NEG) Urine Blood Negative (NEG) Urine Nitrite Negative (NEG) Urine Bilirubin Negative (NEG) Urine Urobilinogen Dipstick 1.0 mg/dL (0.2 mg/dL) Urine Leukocyte Esterase Negative (NEG) Urine RBC Occ /HPF (0-2) Urine WBC 1-4 /HPF (0-4) Urine Squamous Epithelial Cells Mod /LPF Urine Bacteria 0 /HPF (0-FEW) Urine Mucus Marked /LPF White Blood Count 10.9 x10^3/uL (4.0-11.0) Red Blood Count 4.29 x10^6/uL (3.50-5.40) Hemoglobin 11.9 g/dL (12.0-15.5) L Hematocrit 35.1 % (36.0-47.0) L Mean Corpuscular Volume 82 fL (79-100) Mean Corpuscular Hemoglobin 28 pg (25-35) Mean Corpuscular Hemoglobin Concent 34 g/dL (31-37) Red Cell Distribution Width 13.6 % (11.5-14.5) Platelet Count 269 x10^3/uL (140-400) Neutrophils (%) (Auto) 85 % (31-73) H Lymphocytes (%) (Auto) 11 % (24-48) L Monocytes (%) (Auto) 4 % (0-9) Eosinophils (%) (Auto) 0 % (0-3) Basophils (%) (Auto) 0 % (0-3) Neutrophils # (Auto) 9.2 x10^3/uL (1.8-7.7) H Lymphocytes # (Auto) 1.1 x10^3/uL (1.0-4.8) Monocytes # (Auto) 0.4 x10^3/uL (0.0-1.1) Eosinophils # (Auto) 0.0 x10^3/uL (0.0-0.7) Basophils # (Auto) 0.0 x10^3/uL (0.0-0.2) Sodium Level 135 mmol/L (136-145) L Potassium Level 3.3 mmol/L (3.5-5.1) L Chloride Level 101 mmol/L (98-107) Carbon Dioxide Level 22 mmol/L (21-32) Anion Gap 12 (6-14) Blood Urea Nitrogen 9 mg/dL (7-20) Creatinine 0.6 mg/dL (0.6-1.0) Estimated GFR (Cockcroft-Gault) 147.4 BUN/Creatinine Ratio 15 (6-20) Glucose Level 93 mg/dL (70-99) Calcium Level 8.8 mg/dL (8.5-10.1) Total Bilirubin 0.4 mg/dL (0.2-1.0) Aspartate Amino Transferase (AST) 14 U/L (15-37) L Alanine Aminotransferase (ALT) 13 U/L (14-59) L Alkaline Phosphatase 51 U/L (46-116) Total Protein 7.1 g/dL (6.4-8.2) Albumin 3.0 g/dL (3.4-5.0) L Albumin/Globulin Ratio 0.7 (1.0-1.7) L Laboratory Tests 01/13/20 21:15 Laboratory Tests 01/13/20 21:40 EKG EKG [] Radiology/Procedures Radiology/Procedures [] Course & Med Decision Making Course & Med Decision Making Pertinent Labs and Imaging studies reviewed. (See chart for details) Evaluation of patient inertial 24-year-old female patient G2, P1 at 13 weeks of gestation with complaining of episodes of vomiting that did not get better with Zofran and promethazine. Patient had unremarkable physical exam and labs except for potassium of 3.3 and ketones in urine. Patient treated with IV fluids and Zofran and felt better and tolerated oral intake. Prescription for Reglan was given and patient was advised to follow-up with her [facility] appointment tomorrow. I've spoken with the patient and/or caregivers. I've explained the patient's con dition, diagnosis and treatment plan based on information available to me at this time. I've answered the patient's and/or caregivers questions and addressed any concerns. The patient and/or caregivers have a good understanding the patient's diagnosis, condition and treatment plan as can be expected at this point. Vital signs have been stabilized. The patient's condition is stable for discharge from the emergency department. The patient will pursue further outpatient evaluation with her primary care provider or other designated consulting physician as outlined in the discharge instructions. Patient and/or caregivers are agreeable to this plan of care and follow-up instructions have been explained in detail. The patient and/or caregivers have received these instructions in written format and expressed understanding of these discharge instructions. The patient and her caregivers are aware that if any significant change in condition or worsening of symptoms should prompt him to immediately return to this of the closest emergency department. If an emergent department is not readily available I would encourage him to call 911. [place] Disclaimer [place] Disclaimer This electronic medical record was generated, in whole or in part, using a voice recognition dictation system. Departure Departure Impression: Primary Impression: Hyperemesis gravidarum Additional Impression: Hypokalemia Disposition: HOME, SELF-CARE (At 2245) Condition: IMPROVED Referrals: NO PCP (PCP) HUEY FISHMAN MD Patient Instructions: Diet - Hyperemesis Gravidarum, Hyperemesis Gravidarum, Hypokalemia Additional Instructions: Drink plenty of liquids Follow-up with your [facility] as a scheduled tomorrow Return to ER if not getting better Thank you for visiting [facility]. We appreciate you trusting us with your care. If any additional problems come up don't hesitate to return to visit us. Please follow up with your primary care provider so they can plan additional care if needed and know about the problem that you had. If symptoms worsen come back to the Emergency Department. Any concerning symptoms that start such as chest pain, shortness of air, weakness or numbness on one side of the body, running high fevers or any other concerning symptoms return to the ER. Scripts Metoclopramide Hcl (REGLAN) 10 Mg Tablet 1 TAB PO QID for 30 Days, #120 TAB 0 Refills before food and bedtime Prov: TIM BALLESTEROS MD 01/13/20 Problem Qualifiers TIM BALLESTEROS MD Jan 13, 2020 21:38
[2020-01-13 21:39] LABS: BACTERIA,URINE 0 /HPF (0-FEW); RBC,URINE OCC /HPF (0-2)
[2020-01-13 21:40] LABS: SQUAMOUS EPITHELIAL CELL,UR MOD /LPF
[2020-01-13 22:35] LABS: CALCIUM 8.8 mg/dL (8.5-10.1); CREATININE 0.6 mg/dL (0.6-1.0); GFR 147.4; POTASSIUM 3.3 mmol/L (3.5-5.1)
[2020-01-13 22:41] LABS: ALBUMIN/GLOBULIN RATIO 0.7 (1.0-1.7); TOTAL BILIRUBIN 0.4 mg/dL (0.2-1.0); TOTAL PROTEIN 7.1 g/dL (6.4-8.2)
[2020-01-13] MEDS ORDERED: METO10TA81 PO (22:44)
[2020-01-13 23:03] VITALS: BP 158/79
== END 2020-01-13 23:16 | disposition home or self-care (01) ==
LOC: ER 20:50
DX: O21.1 Hyperemesis gravidarum with metabolic disturbance (principal); E87.6 Hypokalemia; Z98.890 Other specified postprocedural states; Z91.013 Allergy to seafood; Z3A.13 13 weeks gestation of pregnancy
CPT/HCPCS: 36415; 80053; 81001; 85025; 96361; 96374; 99283; J2405; J7030

== ENCOUNTER → 2020-03-09 | Outpatient (CLI) | payer MEDICAID ==
[~2020-03-09] MED LIST changes: +METO10TA81 PO
--- NOTE | 2020-03-09 16:16 | RAD ---
EXAM: Obstetrics sonogram. HISTORY: anatomy survey. TECHNIQUE: Sonographic imaging of a gravid uterus was performed. COMPARISON: None. FINDINGS: The exam is limited due to to maternal body habitus, gestational age and presentation. There is a single intrauterine fetus in cephalic presentation with normal heart rate of 160 bpm. There is a posterior placenta without evidence of placenta previa. The amniotic fluid index is normal 11.0 cm. The stomach, kidneys, bladder, spine, and extremities are unremarkable. The right and left ventricular outflow tracts are not well seen. There is a four-chamber heart. The facial profile is not well seen. There is a three-vessel umbilical cord with normal insertion. The biparietal diameter is 6.64 cm, corresponding with 26 weeks and 5 days. The head circumference is 24.05 cm, corresponding with 26 weeks and 1 day. The abdominal circumference is 22.37 cm, corresponding with 26 weeks and 6 days. The femoral length is 4.84 cm, corresponding with 26 weeks and 2 days. The estimated gestational age patient combined also measurements is 26 weeks and 4 days and the estimated weight is 140 g. This corresponds with the 62nd percentile for a gestational age of 25 weeks and 3 days based on LMP. The estimated due date is 06/11/2020. IMPRESSION: 1. Single imaging fetus in cephalic presentation with a normal heart rate and gestational age patient ultrasound measurements of 26 weeks and 4 days. The estimated weight corresponds with the 62nd percentile for a gestational age of 25 weeks and 3 days based on LMP. 2. Suboptimal evaluation of the ventricular outflow tracts and facial profile due to maternal body habitus, gestational age and presentation. The remainder the anatomy survey is unremarkable. Electronically signed by: Sandra Quesada MD (03/09/2020 4:13 PM) [id number]
== END | disposition home or self-care (01) ==
LOC: US 13:45
PROVIDERS: ATTEND Obstetrics & Gynecology
DX: O00.01 Abdominal pregnancy with intrauterine pregnancy (principal); Z3A.26 26 weeks gestation of pregnancy
CPT/HCPCS: 76805

== ENCOUNTER 2020-06-22 15:36 | Inpatient (IN) | payer MEDICAID ==
[~2020-06-22] VITALS: Ht 157.5 cm; Wt 99.3 kg
[2020-06-22] MEDS ORDERED: IV RINGERS,LACTATED 1000ML 1,000 ML IV SCH ×2 (15:52→16:38)
[2020-06-22] MEDS ORDERED: ACETAMINOPHEN 325 MG TABLET. PO PRN (16:00)
[2020-06-22 16:07] LABS: BILIRUBIN,URINE SMALL (NEG); CLARITY,URINE CLEAR; NITRITE,URINE NEGATIVE (NEG); PROTEIN,URINE 30 mg/dL (NEG-TRACE)
[2020-06-22 16:19] LABS: COLOR,URINE YELLOW
[2020-06-22 16:21] LABS: SQUAMOUS EPITHELIAL CELL,UR MANY /LPF
[2020-06-22 16:22] LABS: RBC,URINE OCC /HPF (0-2)
[2020-06-22 16:23] LABS: BACTERIA,URINE FEW /HPF (0-FEW)
[2020-06-22] MEDS ORDERED: CITRIC ACID/SODIUM CITRATE 30 ML SOLUTION. PO ONE (16:45)
[2020-06-22] MEDS ORDERED: OXYTOCIN 30 UNIT/500 ML PREMIX 500 ML IV PRN ×3 (16:45→19:00)
[2020-06-22] MEDS ORDERED: 0.9 % SODIUM CHLORIDE 10 ML DISP.SYRIN. IV PRN ×2 (16:45→19:00)
[2020-06-22] MEDS ORDERED: TERBUTALINE 1 MG/ML VIAL. SQ PRN (16:45)
[2020-06-22] MEDS ORDERED: LIDOCAINE 1% PF 30 ML VIAL. INJ PRN (16:45)
[2020-06-22] MEDS ORDERED: IBUPROFEN 400 MG TABLET. PO PRN ×2 (16:45→19:00)
[2020-06-22 16:55] LABS: BASO % 0 % (0-3); EOS % 0 % (0-3); HEMATOCRIT 33.6 % (36.0-47.0); HEMOGLOBIN 11.2 g/dL (12.0-15.5); LYMPH # 1.2 x10^3/uL (1.0-4.8); LYMPH % 14 % (24-48); MEAN CORPUSCULAR HEMOGLOBIN 26 pg (25-35); MEAN CORPUSCULAR HGB CONC 33 g/dL (31-37); MEAN CORPUSCULAR VOLUME 78 fL (79-100); MONO # 0.6 x10^3/uL (0.0-1.1); MONO % 6 % (0-9); NEUT # 6.9 x10^3/uL (1.8-7.7); NEUT % 80 % (31-73); PLATELET COUNT 214 x10^3/uL (140-400); RED BLOOD COUNT 4.29 x10^6/uL (3.50-5.40); RED CELL DISTRIBUTION WIDTH 14.6 % (11.5-14.5); WHITE BLOOD COUNT 8.7 x10^3/uL (4.0-11.0)
[2020-06-22 17:05] LABS: BARBITURATES NEG (NEG); BENZODIAZEPINES NEG (NEG); CANNABINOIDS POS (NEG); COCAINE NEG (NEG); METHADONE NEG (NEG); OPIATES NEG (NEG); PHENCYCLIDINE NEG (NEG)
[2020-06-22 17:08] LABS: AMPHETAMINE/METHAMPHETAMINE NEG (NEG)
[2020-06-22] MEDS ORDERED: OXYTOCIN 10 UNIT/ML VIAL. ONE (17:24)
[2020-06-22] MEDS ORDERED: MORPHINE PF 10 MG/10 ML AMPUL. ONE (17:24)
[2020-06-22] MEDS ORDERED: ePHEDrine PF IN SALINE 50 MG/10 ML SYRINGE. IV ONE (17:24)
[2020-06-22] MEDS ORDERED: ONDANSETRON PF 4 MG/2 ML VIAL. ONE (18:08)
[2020-06-22] MEDS ORDERED: FAMOTIDINE 20 MG/2 ML VIAL ONE (18:14)
[2020-06-22] MEDS ORDERED: diphenhydrAMINE 50 MG/ML VIAL ONE (18:23)
[2020-06-22] MEDS ORDERED: METOCLOPRAMIDE HCL 10 MG/2 ML VIAL. ONE (18:24)
--- NOTE | 2020-06-22 18:40 | PDOC1 ---
OB - History Hx of Present Care: Limited Care Ultrasounds: Normal mid trimester US Obstetrical Complications: None Medical Complications: None Past Family/Social History * Past Medical, Surgical, Family and Obstetric Histories reviewed from chart. Blood Type: Unknown Rubella: Unknown RPR/VDRL: Unknown GBS Status: Unknown HBsAG: Unknown OB - Chief Complaint & HPI Date of Admission: Date of Admission: Jun 22, 2020 at 15:36 Chief Complaint/History : 3 Para: 2 EGA: 41 Reason for admission: active labor Indication for : desires repeat Admission Nurse Assessment Rev: Yes OB - Admission Exam Physical Exam Vitals: VS - Last 72 Hours, by Label Date Time Temp Pulse Resp B/P (MAP) Pulse Ox O2 Delivery O2 Flow Rate FiO2 06/22/20 17:02 64 140/90 HEENT: Normal Heart: Regular Rate Lungs: Clear, Equal Abdomen: Gravid, Non tender, Soft Extremities: Edema Reflexes: Normal Cervical Dilatation: 2cm Effacement: 75% Station: -3 Membranes: Intact Amniotic Fluid: Thick Meconium Accelerations: Accelerations Present Decelerations: No decelerations Contractions on Admission: < 5 Minutes Apart Intensity: Firm Text A: 41 wks IUP Limited PNC Previous c/s x1 Active labor P: Admit for repeat c/s. NAVIN KAMARA Jr, MD Jun 22, 2020 18:40
--- NOTE | 2020-06-22 18:48 | PDOC4 ---
OB Operative Note Date: Jun 22, 2020 PRE OP DIAGNOSIS: Previoujs C- section (active labor) POST OP DIAGNOSIS: Other (same) OPERATION PERFORMED: R [facility] Surgeon Dr. Messer Anesthesia: Regional (spinal) Blood Loss 600 ml Specimen placenta and OB Findings: Position (Vertex), Sex (Male), (8/9), Weight (6 Lb 14 oz), Nuchal Cord (x1) Complications none Additional Remarks pt. NAVIN Herr Jr, MD Jun 22, 2020 18:48
[2020-06-22] MEDS ORDERED: MAG HYDROX/ALUMINUM HYD/SIMETH 30 ML ORAL.SUSP PO PRN (19:00)
[2020-06-22] MEDS ORDERED: oxyCODONE/APAP 5/325 1 TAB TABLET PO PRN (19:00)
[2020-06-22] MEDS ORDERED: SIMETHICONE 80 MG TAB.CHEW PO PRN (19:00)
[2020-06-22] MEDS ORDERED: diphenhydrAMINE ORAL ELIXIR 12.5 MG/5 ML ML PO PRN (19:00)
[2020-06-22] MEDS ORDERED: ONDANSETRON PF 4 MG/2 ML VIAL. IV PRN (19:00)
[2020-06-22] MEDS ORDERED: ZOLPIDEM 5 MG TABLET. PO PRN (19:00)
--- NOTE | 2020-06-22 19:02 | OP ---
DATE OF SURGERY: PREOPERATIVE DIAGNOSES: 1. A 41 weeks' intrauterine . 2. Previous section. 3. Active labor. POSTOPERATIVE DIAGNOSES: 1. A 41 weeks' intrauterine . 2. Previous section. 3. Active labor. PROCEDURE: Repeat low transverse section. SURGEON: Navin Messer MD ANESTHESIA: Spinal. ESTIMATED BLOOD LOSS: 600 mL. COMPLICATIONS: None. FINDINGS: Viable male , Apgars 8 and 9, weight 6 pounds 14 ounces. Three-vessel cord placenta delivered manually. SUMMARY: A 25-year-old 3, para 2 at 41 weeks, who presented in active labor. She was counseled on risks, benefits and expectations of repeat section and desired to proceed. DESCRIPTION OF PROCEDURE: The patient was taken to surgery suite and placed in dorsal supine position, was prepped with ChloraPrep and draped in sterile fashion. After adequate anesthesia, Pfannenstiel skin incision was made with scalpel down to and through the fascia. Fascia was extended laterally using curved Espinoza scissors. The superior edge of fascia was grasped with two Esme clamps and dissected free of the abdominal rectus muscle using blunt dissection along with sharp dissection utilizing curved Espinoza scissors. The same process took place inferiorly. Abdominal rectus muscles were dissected at the midline using sharp dissection with curved Espinoza scissors. This incision was extended superiorly as well as inferiorly. Peritoneum was also dissected with curved Espinoza scissors. The Eloi ring retractor was placed. Low transverse hysterotomy incision made with scalpel down to the amniotic sac. Hysterotomy incision was extended laterally and superiorly digitally. Amniotomy was performed with Allis clamp, which elicited a moderate amount of clear fluid. With the aid of fundal pressure, the infant's head was delivered in a smooth atraumatic manner. Nuchal cord x 1 was visualized and reduced. With additional fundal pressure, the anterior shoulder was delivered followed by posterior shoulder. Rest of male was delivered. Infant was suctioned with bulb syringe orally and nasally, umbilical cord was clamped twice and cut and viable male infant was handed to waiting nursing staff. Umbilical cord blood was then obtained. Three-vessel cord placenta was delivered manually. The uterus was then exteriorized and cleared of clot and debris with moist lap. Hysterotomy incision was reapproximated using #1 Vicryl suture in running locked fashion. Uterus palpated firm. Fallopian tubes and ovaries appeared normal bilaterally. Posterior cul-de-sac was cleared of clot and debris with moist lap. The uterus was then returned to the abdomen. The pericolic gutters were cleared of clot and debris with moist lap. Hysterotomy incision was reviewed and was hemostatic. The Elio ring retractor was removed. The peritoneum was reapproximated using #1 Vicryl suture in running fashion. The abdominal rectus muscles were reapproximated using 1 Vicryl suture in running fashion. Fascia was reapproximated using Stratafix in running fashion. The skin was reapproximated using 4-0 Vicryl suture in subcuticular manner. The patient tolerated the procedure well and was taken to recovery room in stable condition. Sponge and needle count correct x 3. NAVIN MESSER MD DR: TAMARA/elisa JOB#: [id number] / [id number]
[2020-06-22] MEDS: KETOROLAC 30 MG/ML VIAL. IV PRN (20:47)
[2020-06-22 22:56] VITALS: BP 134/76
[2020-06-22 23:55] VITALS: BP 132/72
[2020-06-23] MEDS: KETOROLAC 30 MG/ML VIAL. IV PRN (06:00)
[2020-06-23 06:38] VITALS: BP 138/77
[2020-06-23 07:36] LABS: BASO % 0 % (0-3); EOS % 0 % (0-3); HEMATOCRIT 28.1 % (36.0-47.0); HEMOGLOBIN 9.2 g/dL (12.0-15.5); LYMPH # 1.3 x10^3/uL (1.0-4.8); LYMPH % 12 % (24-48); MEAN CORPUSCULAR HEMOGLOBIN 26 pg (25-35); MEAN CORPUSCULAR HGB CONC 33 g/dL (31-37); MEAN CORPUSCULAR VOLUME 78 fL (79-100); MONO # 0.7 x10^3/uL (0.0-1.1); MONO % 7 % (0-9); NEUT # 8.7 x10^3/uL (1.8-7.7); NEUT % 81 % (31-73); PLATELET COUNT 167 x10^3/uL (140-400); RED BLOOD COUNT 3.59 x10^6/uL (3.50-5.40); RED CELL DISTRIBUTION WIDTH 14.9 % (11.5-14.5); WHITE BLOOD COUNT 10.8 x10^3/uL (4.0-11.0)
[2020-06-23] MEDS: MULTIVITAMIN with MINERAL TABLET. PO SCH (09:16)
[2020-06-23] MEDS: DOCUSATE SODIUM 100 MG CAPSULE. PO PRN ×2 (09:16→17:12)
[2020-06-23] MEDS: FERROUS SULFATE 325 MG TABLET. PO SCH ×2 (09:16→17:12)
--- NOTE | 2020-06-23 10:36 | NUR ---
SS following up with referral regarding "mother positive for Marijuana. urine drug screen positive for Marijuana. Meconium drug screen pending." SS met with infant RN and reviewed pt chart. UDS was positive for Marijuana. SS met with mother to assess circumstances surrounding the referral. Mother admitted to Marijuana use during . Mother reported that infant is her third child and she has two other children in the home. Mother reported having all needed supplies for infant. She reported that her sister is bringing carseat to the hospital. Mother reported having good family support and transportation during the week. She reported that her family helps financially support her. She reported that she saw Dr. Gonzalez and Dr. Messer for care. She reported that her manager bench is Dr. Abdullahi Jansen. Mother requested resources for [place]. SS provided resources for WIC and parents as teachers. Mother reported concern with infants eating. SS discussed with infant RN. [facility] hotline report made for positive Marijuana. Intake#[id number]. SS will continue to follow.
[2020-06-23 10:45] VITALS: BP 151/83
--- NOTE | 2020-06-23 13:33 | PDOC ---
OB Progress Note Date of Service 06/23/20 Time of Evaluation 1330 Notes Pt. feeling well. No complaints. Lab Laboratory Tests Test 06/22/20 15:55 06/22/20 16:17 06/22/20 16:51 06/23/20 06:15 Urine Collection Type Unknown Urine Color Yellow Urine Clarity Clear Urine pH 7.0 (<5.0-8.0) Urine Specific [place] >=1.030 (1.000-1.030) Urine Protein 30 mg/dL (NEG-TRACE) Urine Glucose (UA) Negative mg/dL (NEG) Urine Ketones (Stick) >=80 mg/dL (NEG) Urine Blood Negative (NEG) Urine Nitrite Negative (NEG) Urine Bilirubin Small (NEG) Urine Urobilinogen Dipstick 2.0 mg/dL (0.2 mg/dL) Urine Leukocyte Esterase Small (NEG) Urine RBC Occ /HPF (0-2) Urine WBC 1-4 /HPF (0-4) Urine Squamous Epithelial Cells Many /LPF Urine Bacteria Few /HPF (0-FEW) Urine Mucus Marked /LPF Urine Opiates Screen Neg (NEG) Urine Methadone Screen Neg (NEG) Urine Barbiturates Neg (NEG) Urine Phencyclidine Screen Neg (NEG) Urine Amphetamine/Methamphetamine Neg (NEG) Urine Benzodiazepines Screen Neg (NEG) Urine Cocaine Screen Neg (NEG) Urine Cannabinoids Screen Pos (NEG) Urine Ethyl Alcohol Neg (NEG) White Blood Count 8.7 x10^3/uL (4.0-11.0) 10.8 x10^3/uL (4.0-11.0) Red Blood Count 4.29 x10^6/uL (3.50-5.40) 3.59 x10^6/uL (3.50-5.40) Hemoglobin 11.2 g/dL (12.0-15.5) 9.2 g/dL (12.0-15.5) Hematocrit 33.6 % (36.0-47.0) 28.1 % (36.0-47.0) Mean Corpuscular Volume 78 fL (79-100) 78 fL (79-100) Mean Corpuscular Hemoglobin 26 pg (25-35) 26 pg (25-35) Mean Corpuscular Hemoglobin Concent 33 g/dL (31-37) 33 g/dL (31-37) Red Cell Distribution Width 14.6 % (11.5-14.5) 14.9 % (11.5-14.5) Platelet Count 214 x10^3/uL (140-400) 167 x10^3/uL (140-400) Neutrophils (%) (Auto) 80 % (31-73) 81 % (31-73) Lymphocytes (%) (Auto) 14 % (24-48) 12 % (24-48) Monocytes (%) (Auto) 6 % (0-9) 7 % (0-9) Eosinophils (%) (Auto) 0 % (0-3) 0 % (0-3) Basophils (%) (Auto) 0 % (0-3) 0 % (0-3) Neutrophils # (Auto) 6.9 x10^3/uL (1.8-7.7) 8.7 x10^3/uL (1.8-7.7) Lymphocytes # (Auto) 1.2 x10^3/uL (1.0-4.8) 1.3 x10^3/uL (1.0-4.8) Monocytes # (Auto) 0.6 x10^3/uL (0.0-1.1) 0.7 x10^3/uL (0.0-1.1) Eosinophils # (Auto) 0.0 x10^3/uL (0.0-0.7) 0.0 x10^3/uL (0.0-0.7) Basophils # (Auto) 0.0 x10^3/uL (0.0-0.2) 0.0 x10^3/uL (0.0-0.2) Treponema pallidum Antibody Nonreactive (Nonreactive) Hepatitis B Surface Antigen Nonreactive (Nonreactive) HIV (1&2) Antibody Screen Nonreactive (Nonreactive) SARS-CoV-2 Antigen (Rapid) Negative (NEGATIVE) Laboratory Tests Test 06/22/20 15:55 06/22/20 16:17 06/22/20 16:51 06/23/20 06:15 Urine Collection Type Unknown Urine Color Yellow Urine Clarity Clear Urine pH 7.0 (<5.0-8.0) Urine Specific [place] >=1.030 (1.000-1.030) Urine Protein 30 mg/dL (NEG-TRACE) Urine Glucose (UA) Negative mg/dL (NEG) Urine Ketones (Stick) >=80 mg/dL (NEG) Urine Blood Negative (NEG) Urine Nitrite Negative (NEG) Urine Bilirubin Small (NEG) Urine Urobilinogen Dipstick 2.0 mg/dL (0.2 mg/dL) Urine Leukocyte Esterase Small (NEG) Urine RBC Occ /HPF (0-2) Urine WBC 1-4 /HPF (0-4) Urine Squamous Epithelial Cells Many /LPF Urine Bacteria Few /HPF (0-FEW) Urine Mucus Marked /LPF Urine Opiates Screen Neg (NEG) Urine Methadone Screen Neg (NEG) Urine Barbiturates Neg (NEG) Urine Phencyclidine Screen Neg (NEG) Urine Amphetamine/Methamphetamine Neg (NEG) Urine Benzodiazepines Screen Neg (NEG) Urine Cocaine Screen Neg (NEG) Urine Cannabinoids Screen Pos (NEG) Urine Ethyl Alcohol Neg (NEG) White Blood Count 8.7 x10^3/uL (4.0-11.0) 10.8 x10^3/uL (4.0-11.0) Red Blood Count 4.29 x10^6/uL (3.50-5.40) 3.59 x10^6/uL (3.50-5.40) Hemoglobin 11.2 g/dL (12.0-15.5) 9.2 g/dL (12.0-15.5) Hematocrit 33.6 % (36.0-47.0) 28.1 % (36.0-47.0) Mean Corpuscular Volume 78 fL (79-100) 78 fL (79-100) Mean Corpuscular Hemoglobin 26 pg (25-35) 26 pg (25-35) Mean Corpuscular Hemoglobin Concent 33 g/dL (31-37) 33 g/dL (31-37) Red Cell Distribution Width 14.6 % (11.5-14.5) 14.9 % (11.5-14.5) Platelet Count 214 x10^3/uL (140-400) 167 x10^3/uL (140-400) Neutrophils (%) (Auto) 80 % (31-73) 81 % (31-73) Lymphocytes (%) (Auto) 14 % (24-48) 12 % (24-48) Monocytes (%) (Auto) 6 % (0-9) 7 % (0-9) Eosinophils (%) (Auto) 0 % (0-3) 0 % (0-3) Basophils (%) (Auto) 0 % (0-3) 0 % (0-3) Neutrophils # (Auto) 6.9 x10^3/uL (1.8-7.7) 8.7 x10^3/uL (1.8-7.7) Lymphocytes # (Auto) 1.2 x10^3/uL (1.0-4.8) 1.3 x10^3/uL (1.0-4.8) Monocytes # (Auto) 0.6 x10^3/uL (0.0-1.1) 0.7 x10^3/uL (0.0-1.1) Eosinophils # (Auto) 0.0 x10^3/uL (0.0-0.7) 0.0 x10^3/uL (0.0-0.7) Basophils # (Auto) 0.0 x10^3/uL (0.0-0.2) 0.0 x10^3/uL (0.0-0.2) Treponema pallidum Antibody Nonreactive (Nonreactive) Hepatitis B Surface Antigen Nonreactive (Nonreactive) HIV (1&2) Antibody Screen Nonreactive (Nonreactive) SARS-CoV-2 Antigen (Rapid) Negative (NEGATIVE) Medications Current Medications Ringer's Solution 1,000 ml @ 125 mls/hr Q8H IV Last administered on 06/22/20at 17:25; Start 06/22/20 at 15:52; Stop 06/22/20 at 21:57; Status DC Acetaminophen (Tylenol) 650 mg PRN Q6HRS PRN PO PAIN, TEMP > 100.5'F; Start 06/22/20 at 16:00 Sodium Chloride (Normal Saline Flush) 3 ml QSHIFT PRN IV AFTER MEDS AND BLOOD DRAWS; Start 06/22/20 at 16:45; Stop 06/22/20 at 21:56; Status DC Ringer's Solution 1,000 ml @ 125 mls/hr Q8H IV Last administered on 06/22/20at 17:37; Start 06/22/20 at 16:38 Terbutaline Sulfate (Brethine) 0.25 mg 1X PRN PRN SQ SEE COMMENTS Last administered on 06/22/20at 17:02; Start 06/22/20 at 16:45; Stop 06/23/20 at 16:44 Lidocaine HCl (Xylocaine 1% Pf 30ml Vial) 30 ml 1X PRN PRN INJ SEE COMMENTS; Start 06/22/20 at 16:45; Stop 06/24/20 at 16:44 Oxytocin/Sodium Chloride 500 ml @ 0 mls/hr CONT PRN IV SEE I/O RECORD; Start 06/22/20 at 16:45 Oxytocin/Sodium Chloride 500 ml @ 0 mls/hr CONT PRN PRN IV Post delivery bleeding; Start 06/22/20 at 16:45 Ibuprofen (Motrin) 800 mg PRN Q6HRS PRN PO PAIN; Start 06/22/20 at 16:45; Stop 06/22/20 at 21:57; Status DC Cefazolin Sodium/ Dextrose 50 ml @ 100 mls/hr 1X ONCE IV Last administered on 06/22/20at 17:37; Start 06/22/20 at 16:45; Stop 06/22/20 at 17:14; Status DC Citric Acid/ Sodium Citrate (Bicitra) 30 ml 1X ONCE PO Last administered on 06/22/20at 17:37; Start 06/22/20 at 16:45; Stop 06/22/20 at 16:53; Status DC Morphine Sulfate (Morphine Preservative Free) 10 mg STK-MED ONCE .ROUTE ; Start 06/22/20 at 17:24; Stop 06/22/20 at 17:24; Status DC Oxytocin (Pitocin) 10 unit STK-MED ONCE .ROUTE ; Start 06/22/20 at 17:24; Stop 06/22/20 at 17:24; Status DC Ephedrine Sulfate (ePHEDrine PF IN SALINE SYRINGE) 50 mg STK-MED ONCE IV ; Start 06/22/20 at 17:24; Stop 06/22/20 at 17:24; Status DC Ondansetron HCl (Zofran) 4 mg STK-MED ONCE .ROUTE ; Start 06/22/20 at 18:08; Stop 06/22/20 at 18:08; Status DC Famotidine (Pepcid Vial) 20 mg STK-MED ONCE .ROUTE ; Start 06/22/20 at 18:14; Stop 06/22/20 at 18:15; Status DC Diphenhydramine HCl (Benadryl) 50 mg STK-MED ONCE .ROUTE ; Start 06/22/20 at 18:23; Stop 06/22/20 at 18:24; Status DC Metoclopramide HCl (Reglan Vial) 10 mg STK-MED ONCE .ROUTE ; Start 06/22/20 at 18:24; Stop 06/22/20 at 18:24; Status DC Sodium Chloride (Normal Saline Flush) 3 ml QSHIFT PRN IV AFTER MEDS AND BLOOD DRAWS; Start 06/22/20 at 19:00 Oxytocin/Sodium Chloride 500 ml @ 125 mls/hr CONT PRN IV EXCESSIVE POST- BLEEDING; Start 06/22/20 at 19:00; Stop 06/23/20 at 02:59; Status DC Ibuprofen (Motrin) 800 mg PRN Q8HRS PRN PO INFLAMMATION; Start 06/22/20 at 19:00 Ondansetron HCl (Zofran) 4 mg PRN Q6HRS PRN IV NAUSEA/VOMITING; Start 06/22/20 at 19:00 Docusate Sodium (Colace) 100 mg PRN BID PRN PO HARD STOOL Last administered on 06/23/20at 09:16; Start 06/22/20 at 19:00 Al Hydroxide/Mg Hydroxide (Mylanta Plus Xs) 30 ml PRN Q4HRS PRN PO HEARTBURN / GAS; Start 06/22/20 at 19:00 Simethicone (Gas-X) 80 mg PRN AFTMEALHC PRN PO GAS / BLOATING; Start 06/22/20 at 19:00 Diphenhydramine HCl (Benadryl Oral Elixir) 12.5 mg PRN Q6HRS PRN PO ITCHING Last administered on 06/22/20at 20:46; Start 06/22/20 at 19:00 Ferrous Sulfate (Feosol) 325 mg BIDWMEALS PO Last administered on 06/23/20at 09:16; Start 06/23/20 at 08:00 Zolpidem Tartrate (Ambien) 5 mg PRN QHS PRN PO INSOMNIA, MAY REPEAT X1; Start 06/22/20 at 19:00 Oxycodone/ Acetaminophen (Percocet 5/325) 2 tab PRN Q4HRS PRN PO MODERATE PAIN, SEVERE PAIN Last administered on 06/23/20at 09:17; Start 06/22/20 at 19:00 Ketorolac Tromethamine (Toradol 30mg Vial) 30 mg PRN Q6HRS PRN IV PAIN Last administered on 06/23/20at 06:00; Start 06/22/20 at 19:00; Stop 06/27/20 at 18:59 Multivitamins (Thera M Plus) 1 tab DAILY PO Last administered on 06/23/20at 09:16; Start 06/23/20 at 09:00 Active Scripts Active Reglan (Metoclopramide Hcl) 10 Mg Tablet 1 Tab PO QID 30 Days before food and bedtime Ondansetron Hcl 4 Mg Tablet 1 Tab PO PRN Q6HRS PRN 3 Days [place] 5-325 Tablet (Acetaminophen/Hydrocodone Bitart) 1 Each Tablet 1-2 Each PO PRN Q6HRS PRN as needed for pain Cipro (Ciprofloxacin Hcl) 250 Mg Tablet 1 Tab PO BID Naproxen 500 Mg Tablet 1 Tab PO BID [place] 5-325 Tablet (Acetaminophen/Hydrocodone Bitart) 1 Each Tablet 1 Tab PO PRN Q6HRS PRN Exam ABd:soft, non tender, fundus firm Incision site: clean, dry and intact Assessment POD# 1 s/p repeat c/s Plan of Care: Continue current Tx, Mgmt NAVIN KAMARA Jr, MD Jun 23, 2020 13:33
[2020-06-23 16:30] VITALS: BP 118/62
[2020-06-23 21:03] VITALS: BP 138/74
[2020-06-24 05:13] VITALS: BP 131/70
[2020-06-24] MEDS: FERROUS SULFATE 325 MG TABLET. PO SCH (08:37)
[2020-06-24] MEDS: MULTIVITAMIN with MINERAL TABLET. PO SCH (08:37)
[2020-06-24] MEDS: DOCUSATE SODIUM 100 MG CAPSULE. PO PRN (08:37)
--- NOTE | 2020-06-24 10:18 | PDOC3 ---
OB DISCHARGE SUMMARY DATE OF ADMISSION: 06/22/20 DATE OF DISCHARGE: 06/24/20 REASON FOR ADMISSION: Onset of labor INTRAPARTUM PROCEDURES: : Low Cerv Trans DISCHARGE DIAGNOSIS: Term Delivered DISCHARGE INFORMATION: Activity (ad donn), Diet (regular), Instructions (pelvic rest x 6 wks, no driving x 2 wks, and no lifting > 20 lbs x 4 wks) HOSPITAL COURSE Term gestation delivered section without complications. NAVIN KAMARA Jr, MD Jun 24, 2020 10:18
[2020-06-24] MEDS ORDERED: IBUP-1027 PO (10:21)
[2020-06-24] MEDS ORDERED: OXYC1TAB15 PO (10:21)
[2020-06-24] MEDS ORDERED: DOCU-153 PO (10:21)
--- NOTE | 2020-06-24 10:21 | DISCH ---
DISCHARGE INSTRUCTIONS Condition on Discharge Condition on Discharge: Stable Activity After Discharge Activity Instructions for Disc: Activity as tolerated Lifting Instructions after Dis: No heavy lifting Exercise Instruction after Dis: Progress as tolerated Driving Instructions after Dis: No driving for 2 weeks Diet after Discharge Diet after Discharge: Regular Liquid Texture: Thin Liquid Contacting the [facility] after DC Call your doctor for: Concerns you may have Follow-Up Follow up with: Dr. Messer in 2 wks Treatment/Equipment after DC Adaptive Equipment Issued: None NAVIN MESSER Jr, MD Jun 24, 2020 10:21
[2020-06-24 14:15] VITALS: BP 140/90
--- NOTE | 2020-06-24 14:15 | NUR ---
Discharge instructions given to pt. Pt verbalized understanding. Pt discharged home.
== END 2020-06-24 14:37 | disposition home or self-care (01) | DRG 788 ==
LOC: OBSVTOIN 15:36 → 3 SO LND 15:36 → 3 NORTH 21:45
PROVIDERS: ADMIT Obstetrics & Gynecology; ATTEND Obstetrics & Gynecology
PROC: 10D00Z1 Extraction of Products of Conception, Low, Open Approach (ICD-10-PCS; principal; 2020-06-22)
DX: O34.211 Maternal care for low transverse scar from previous cesarean delivery (principal); O77.0 Labor and delivery complicated by meconium in amniotic fluid; Z3A.41 41 weeks gestation of pregnancy; Z37.0 Single live birth; O69.81X0 Labor and delivery complicated by cord around neck, without compression, not applicable or unspecified; Z20.828 Contact with and (suspected) exposure to other viral communicable diseases
CPT/HCPCS: 36415; 80307; 81001; 85025; 86592; 86703; 86762; 86850; 86900; 86901; 87086; 87340; 87426; J0690; J1200; J1885; J2274; J2405; J2590; J2765; J3105; J3490; J7030; J7120; G0378; U0003-CS

== ENCOUNTER 2021-01-02 22:36 | Emergency (ER) | payer MEDICAID ==
[~2021-01-02] VITALS: Ht 162.6 cm; Wt 88.2 kg
[~2021-01-02 22:36] MED LIST changes: +DOCU-153 PO; +IBUP-1027 PO; +OXYC1TAB15 PO
[2021-01-02] MEDS ORDERED: IV NORMAL SALINE 1000ML BAG 1,000 ML IV ONE ×2 (23:00→23:30)
[2021-01-02 23:08] LABS: BILIRUBIN,URINE NEGATIVE (NEG); CLARITY,URINE CLEAR; COLOR,URINE AMBER; NITRITE,URINE NEGATIVE (NEG); PROTEIN,URINE 30 mg/dL (NEG-TRACE)
[2021-01-02] MEDS ORDERED: ONDANSETRON PF 4 MG/2 ML VIAL. IVP ONE (23:15)
[2021-01-02] MEDS ORDERED: FAMOTIDINE 20 MG/2 ML VIAL IVP ONE (23:15)
[2021-01-02] MEDS ORDERED: KETOROLAC 15 MG/ML VIAL. IVP ONE (23:15)
[2021-01-02 23:17] LABS: BASO # 0.1 x10^3/uL (0.0-0.2); BASO % 1 % (0-3); EOS % 0 % (0-3); HEMATOCRIT 36.8 % (36.0-47.0); LYMPH # 1.3 x10^3/uL (1.0-4.8); LYMPH % 15 % (24-48); MEAN CORPUSCULAR HEMOGLOBIN 26 pg (25-35); MEAN CORPUSCULAR HGB CONC 33 g/dL (31-37); MEAN CORPUSCULAR VOLUME 79 fL (79-100); MONO # 0.3 x10^3/uL (0.0-1.1); MONO % 3 % (0-9); NEUT # 7.1 x10^3/uL (1.8-7.7); NEUT % 80 % (31-73); PLATELET COUNT 285 x10^3/uL (140-400); RED BLOOD COUNT 4.64 x10^6/uL (3.50-5.40); RED CELL DISTRIBUTION WIDTH 16.4 % (11.5-14.5); WHITE BLOOD COUNT 8.8 x10^3/uL (4.0-11.0)
[2021-01-02 23:29] LABS: CALCIUM 9.5 mg/dL (8.5-10.1); CREATININE 0.9 mg/dL (0.6-1.0); GFR 91.6; POTASSIUM 3.6 mmol/L (3.5-5.1)
[2021-01-02 23:35] LABS: ALBUMIN/GLOBULIN RATIO 0.9 (1.0-1.7); MAGNESIUM 2.2 mg/dL (1.8-2.4); TOTAL BILIRUBIN 0.7 mg/dL (0.2-1.0); TOTAL PROTEIN 8.4 g/dL (6.4-8.2)
[2021-01-02 23:39] LABS: BACTERIA,URINE FEW /HPF (0-FEW)
--- NOTE | 2021-01-03 00:37 | PHYS DOC ---
Past Medical History Past Medical History: No Pertinent History Past Surgical History: Smoking Status: Never Smoker Alcohol Use: None Drug Use: None General Adult EDM: Chief Complaint: NAUSEA/VOMITING HPI: HPI: Patient is a 25 year old female who presents to [facility] ED with nausea and vomiting which began 2 days ago. She stated that she consumed a large amount Burger Gabino prior to symptoms appearing. She reports that vomit contains no blood. She denies any bowel changes, and reports that she only feels abdominal/chest pain after fits of vomiting or dry heaving. She states that she has not been in contact with anyone that has possessed similar symptoms. She has been consuming Body Armor electrolyte drinks to rehydrate, but has had difficulty keeping any fluids/solids down. Patient has regular menstrual periods, the most recent of which was last week. She states that she has been sexually active in the past, but not recently. She reports vomiting episodes of this magnitude have never occurred before. Review of Systems: Review of Systems: Constitutional: Denies fever, reports chills Eyes: Denies redness or eye pain HENT: Denies nasal congestion or sore throat Respiratory: Denies cough or shortness of breath Cardiovascular: Denies chest pain or palpitations GI: Denies abdominal pain, reports nausea and vomiting : Denies dysuria or hematuria Musculoskeletal: Denies back pain or joint pain Integument: Denies rash or skin lesions Neurologic: Denies headache, focal weakness or sensory changes Complete systems were reviewed and found to be within normal limits, except as documented in this note. Heart Score: C/O Chest Pain: N/A Family History: Family History: No pertinent family history Current Medications: Current Medications Medications (Trade) Dose Ordered Sig/Yanet Start Time Stop Time Status Last Admin Dose Admin Famotidine (Pepcid Vial) 20 mg 1X ONCE 01/02/21 23:15 01/02/21 23:16 DC 01/02/21 23:20 20 MG Ketorolac Tromethamine (Toradol 15mg Vial) 15 mg 1X ONCE 01/02/21 23:15 01/02/21 23:16 DC 01/02/21 23:20 15 MG Ondansetron HCl (Zofran) 4 mg 1X ONCE 01/02/21 23:15 01/02/21 23:16 DC 01/02/21 23:20 4 MG Sodium Chloride 1,000 ml @ 1,000 mls/hr 1X ONCE 01/02/21 23:30 01/03/21 00:29 UNV Allergies: Allergies: Allergies Coded Allergies Type Severity Reaction Last Updated Verified shellfish derived Allergy Intermediate 10/09/16 Yes Physical Exam: PE: Constitutional: Well developed, well nourished, no acute distress, non-toxic appearance, very fatigued HENT: Normocephalic, atraumatic Eyes: PERRL, EOMI, conjunctiva normal, no discharge Neck: Normal range of motion, no tenderness, supple Lungs & Thorax: No respiratory distress, equal chest rise and fall Abdomen: Soft, no tenderness Skin: Warm, dry, no erythema, no rash Back: No tenderness, no CVA tenderness Extremities: No tenderness, ROM intact, no edema Neurologic: Alert and oriented X 3, normal motor function, normal sensory function, no focal deficits noted Psychologic: Affect normal, judgment normal Current Patient Data: Labs: Laboratory Tests Test 01/02/21 22:47 01/02/21 23:05 POC Urine HCG, Qualitative Hcg negative (Negative) Sodium Level 144 mmol/L (136-145) Potassium Level 3.6 mmol/L (3.5-5.1) Chloride Level 106 mmol/L (98-107) Carbon Dioxide Level 25 mmol/L (21-32) Anion Gap 13 (6-14) Blood Urea Nitrogen 11 mg/dL (7-20) Creatinine 0.9 mg/dL (0.6-1.0) Estimated GFR (Cockcroft-Gault) 91.6 BUN/Creatinine Ratio 12 (6-20) Glucose Level 107 mg/dL (70-99) H Calcium Level 9.5 mg/dL (8.5-10.1) Magnesium Level Pending Total Bilirubin Pending Aspartate Amino Transferase (AST) Pending Alanine Aminotransferase (ALT) Pending Alkaline Phosphatase Pending Total Protein Pending Albumin Pending Albumin/Globulin Ratio Pending Lipase 78 U/L (73-393) Laboratory Tests 01/02/21 23:05 EKG: EKG: Not obtained Radiology/Procedures: Radiology/Procedures: None obtained Course & Med Decision Making: Course & Med Decision Making Patient is a 25 year old female who presents to [facility] ED with nausea and vomiting which began 2 days ago. CBC and Urinalysis were obtained and showed no significant abnormalities. test was negative. Patient has been provided with 2000 mL normal saline bolus, pepcid, ketorolac, and zofran in ED. Patient was prescribed zofran, hyoscyamine, and pepcid for symptom control. Patient was advised to rest for next couple of days. Patient was advised to begin with clear liquid diet and then transition to BRAT diet. Patient stable for discharge with outpatient follow-up with PCP. Discussed findings and plan with patient, who acknowledges understanding and agreement. Pertinent Labs and Imaging studies reviewed. (See chart for details) Dragon Disclaimer: Dragon Disclaimer: This electronic medical record was generated, in whole or in part, using a voice recognition dictation system. Departure Departure Impression: Primary Impression: Nausea & vomiting Qualified Codes: R11.2 - Nausea with vomiting, unspecified Disposition: 01 DC HOME SELF CARE/HOMELESS Condition: STABLE Referrals: NO PCP (PCP) Patient Instructions: Clear Liquid Diet, [id number], Food Poisoning, [id number], Nausea and Vomiting, [id number] Scripts Hyoscyamine Sulfate (LEVSIN-SL) 0.125 Mg Tab.subl 0.125 MG SL Q4-6HRS PRN for PAIN, #14 TAB Prov: DYLAN LUCAS DO 01/03/21 Famotidine (PEPCID) 20 Mg Tablet 20 MG PO BID, #10 TAB Prov: DYLAN LUCAS DO 01/03/21 Ondansetron (ONDANSETRON ODT) 4 Mg Tab.rapdis 1 TAB PO PRN Q6-8HRS PRN for NAUSEA, #16 TAB Prov: DYLAN LUCAS DO 01/03/21 DYLAN LUCAS DO Jan 03, 2021 00:37
[2021-01-03 00:38] VITALS: BP 131/67
[2021-01-03] MEDS ORDERED: ONDA4TAB12 PO (00:41)
[2021-01-03] MEDS ORDERED: HYOS0.1265 SL (00:41)
[2021-01-03] MEDS ORDERED: FAMO-63 PO (00:41)
== END 2021-01-03 00:46 | disposition home or self-care (01) ==
LOC: ER 22:36
DX: R11.2 Nausea with vomiting, unspecified (principal); Z98.890 Other specified postprocedural states; Z91.013 Allergy to seafood
CPT/HCPCS: 36415; 80053; 81001; 81025; 83690; 83735; 85025; 96361; 96374; 96375; 99285; J1885; J2405; J3490; J7030